=== PATIENT | male | born 1960 | race Caucasian/White ===

== ENCOUNTER 2016-05-14 01:45 | Inpatient (IN) | payer OTHER ==
[2016-05-14] VITALS (8 sets, daily range): BP systolic 117–137; BP diastolic 77–96; PULSE 91–115; RESP 20; TEMP 98.3
[~2016-05-14] VITALS: Ht 170.2 cm; Wt 95.0 kg
[2016-05-14] MEDS ORDERED: ALBUTEROL 0.5% (NEB) 2.5 MG/0.5 ML AMP NEB STA (03:19)
[2016-05-14] MEDS ORDERED: IPRATROPIUM (NEB) 0.5 MG/2.5 ML AMP NEB STA (03:19)
--- NOTE | 2016-05-14 03:54 | RADRPT ---
PROCEDURE: Chest. CLINICAL INDICATION: Shortness of breath. TECHNIQUE: Single frontal view of the chest was obtained. COMPARISON: 05/11/2013. FINDINGS: The cardiac silhouette is enlarged. The aortic arch is calcified. There is pulmonary venous conges tion. There is no pleural effusion. There is no pneumothorax. IMPRESSION: Moderate cardiomegaly and pulmonary venous congestion. Aortic atherosclerosis. .Juan Ramon Caraballo MD, MD Date Time Electronically viewed and signed by .Juan Ramon Caraballo MD, on 05/14/2016 03:54 .T/
[2016-05-14 04:19] LABS: ALBUMIN 3.6 g/dl (3.3-4.9)
[2016-05-14 04:20] LABS: POTASSIUM 4.3 mmol/L (3.5-5.1)
[2016-05-14 04:22] LABS: ALBUMIN/GLOBULIN RATIO 1.44; BILIRUBIN,INDIRECT 0.6 mg/dl (0-1.1); BILIRUBIN,TOTAL 0.6 mg/dl (0.2-1.3); CALCIUM 8.9 mg/dl (8.4-10.2); CREATININE 0.98 mg/dl (0.61-1.24); TOTAL PROTEIN 6.1 g/dl (6.1-8.1)
[2016-05-14] MEDS ORDERED: FUROSEMIDE 40 MG INJ IV ONE ×2 (04:30→15:38)
[2016-05-14 04:31] LABS: PROTIME 13.2 Sec (12.2-14.2)
[2016-05-14 04:34] LABS: TROPONIN-I 0.063 ng/ml (0.00-0.12)
[2016-05-14 04:35] LABS: HEMATOCRIT 45.2 % (42.0-52.0); MEAN CORPUSCULAR HEMOGLOBIN 29.3 pg (29.0-33.0); MEAN CORPUSCULAR HGB CONC 33.2 g/dl (32.0-37.0); MEAN CORPUSCULAR VOLUME 88.3 fl (82.0-101.0); MEAN PLATELET VOLUME 10.8 fl (7.4-10.4); PARTIAL THROMBOPLASTIN TIME 27.6 Sec (25.0-35.0); PLATELET COUNT 216 10^3/UL (140-440); RED BLOOD COUNT 5.12 10^6/ul (4.70-6.10); RED CELL DISTRIBUTION WIDTH 15.5 % (11.5-14.5); WHITE BLOOD COUNT 9.1 10^3/ul (4.8-10.8)
[2016-05-14 04:36] LABS: BASOPHILS % 0.4 % (0.0-2.0); EOSINOPHILS # 0.1 10^3/ul (0.0-0.5); EOSINOPHILS % 1.3 % (0.0-7.0); LYMPHOCYTES # 2.8 10^3/ul (0.8-2.9); MONOCYTE # 0.9 10^3/ul (0.3-0.9); MONOCYTES % 9.9 % (0.0-11.0); NEUTROPHIL # 5.2 10^3/ul (1.6-7.5)
[2016-05-14] MEDS ORDERED: BENA10TA48 PO (06:48)
[2016-05-14] MEDS ORDERED: morphine 2 MG INJ IV PRN (11:30)
[2016-05-14] MEDS ORDERED: MAGNESIUM HYDROXIDE 30ML CUP PO PRN (11:30)
[2016-05-14] MEDS ORDERED: ONDANSETRON 4 MG INJ IV PRN (11:30)
[2016-05-14] MEDS ORDERED: NACL 0.9% 3 ML SYG IV SCH (11:30)
[2016-05-14] MEDS ORDERED: NITROGLYCERIN (SL) 0.4 MG TAB SL PRN (11:30)
[2016-05-14] MEDS ORDERED: BISACODYL 10 MG SUPP PR PRN (11:30)
[2016-05-14] MEDS ORDERED: DOCUSATE SODIUM 100 MG CAP PO PRN (11:30)
[2016-05-14] MEDS ORDERED: ACETAMINOPHEN 325 MG TAB PO PRN (11:30)
[2016-05-14] MEDS ORDERED: HYDROCODONE/APAP (5/325) TAB PO PRN ×2 (11:30)
[2016-05-14] MEDS: ENOXAPARIN 40 MG/0.4 ML SYG SC SCH (12:07)
[2016-05-14] MEDS: METOPROLOL 25 MG TAB PO SCH ×2 (12:10→20:53)
[2016-05-14 13:15] LABS: CHOL/HDL RATIO 3.4 RATIO
[2016-05-14 13:27] LABS: TROPONIN-I 0.068 ng/ml (0.00-0.12)
[2016-05-14 13:31] LABS: CK-MB 2.3 ng/ml (0.0-2.4)
[2016-05-14 13:46] LABS: THYROID STIMULATING HORMONE 0.73 MIU/L (0.465-4.680)
--- NOTE | 2016-05-14 14:41 | RADRPT ---
Echocardiogram Report Patient Name: MERCEDES CURIEL Gender: Male Date: 1960 Study Date: 14-May-2016 Registered Massage Therapist: [facility] Location: 5554 Ref. Physician: GREG ANTONY Quality: Adequate Procedures: Transthoracic echocardiogram with complete 2D, M-Mode, and doppler examination. Indications: Evaluate Left Ventricular function. 2D/M Mode Doppler Measurement Value Normal Ranges Measurement Value Normal Ranges LVIDd 2D 7.3 3.5 - 5.6 cm AV Peak Oneil 1.1 m/sec LVIDs 2D 6.8 2.1 - 4.1 cm AV Peak PG 5.2 mmHg LVPWd 2D 1.0 0.6 - 1.1 cm AI Peak PG 8.0 mmHg IVSd 2D 1.0 0.6 - 1.1 cm AI Peak Oneil 1.4 m/sec AoR Diam 2D 2.8 2.0 - 3.7 cm AI PHT 495.3 msec EDV 2D 283.7 cm3 LVOT Peak Oneil 0.7 m/sec ESV 2D 321.3 cm3 LVOT Peak PG 2.0 mmHg EF 2D 15.0 50.0 - 65.0 % MR Mean PG 75.3 mmHg LA Dimen 2D 4.8 2.3 - 4.0 cm MR Mean Oneil 4.1 m/sec IVC Diam 2.7 1.2 - 2.0 MR Peak PG 119.8 mmHg MR Peak Oneil 5.5 m/sec MR VTI 153.7 cm TR Peak Oneil 3.6 m/sec TR Peak PG 52.4 mmHg Findings Left Ventricle: Lower limits of normal systolic function. Left ventricular wall thickness upper limits of normal. Mild enlargement of left ventricle cavity. Ejection fraction is visually estimated at 50 %. Abnormal Diastolic Function. These segments of the LV are hypokinetic inferolateral mid segment and inferolateral base. Right Ventricle: Normal right ventricular size. Normal right ventricular systolic function. Left Atrium: There is moderate enlargement of left atrium. Right Atrium: There is mild enlargement of right atrium. Mitral Valve: Mitral valve leaflets appear mildly thickened. Mild mitral annular calcification. Moderate to severe mitral valve regurgitation. Aortic Valve: No hemodynamically significant aortic stenosis by doppler. Aortic cusps appear mildly calcified. Trace aortic valve regurgitation. Tricuspid Valve: Normal appearance of the tricuspid valve. Estimated peak PA systolic pressure 65 mmHg. There is mild to moderate tricuspid regurgitation. Pulmonic Valve: Pulmonic valve not well visualized. There is trace pulmonic regurgitation. Pericardium: Normal pericardium with no significant pericardial effusion. Aorta: Normal aortic root. IVC: Dilated inferior vena cava with poor inspiratory collapse consistent with elevated right atrial pressures. Conclusions Lower limits of normal systolic function. Left ventricular wall thickness upper limits of normal. Mild enlargement of left ventricle cavity. Ejection fraction is visually estimated at 50 %. Abnormal Diastolic Function. These segments of the LV are hypokinetic infero-lateral mid segment. and infero-lateral base. Normal right ventricular size. Normal right ventricular systolic function. There is moderate enlargement of left atrium. There is mild enlargement of right atrium. Moderate to severe mitral valve regurgitation. Estimated peak PA systolic pressure 65 mmHg. There is mild to moderate tricuspid regurgitation. No hemodynamically significant aortic stenosis by doppler. Trace aortic valve regurgitation. Normal pericardium with no significant pericardial effusion. Electronically Signed By: Chuck Szymanski 14-May-2016 14:40:54 -0800 Patient Name: MERCEDES CURIEL Study Date: 14-May-[id number]
--- NOTE | 2016-05-14 15:42 | CONS ---
Date/Time of Note Date/Time of Note DATE: 05/14/16 TIME: 15:38 Assessment/Plan Assessment/Plan Additional Assessment/Plan Acute decompensated systolic and diastolic congestive heart failure Cardiomyopathy with ejection fraction 50% Moderate to severe mitral valve regurgitation Mild to moderate tricuspid valve regurgitation Pulmonary hypertension Hypertension Dyslipidemia -Patient with acute decompensated congestive heart failure with significant mitral valve regurgitation. Would start ERIKA inhibitor, continue beta-ezio, start IV diuretics, aspirin and statin therapy, maintain potassium above 4.0 and magnesium above 2.0. Fluid restrictions with 2 g sodium daily diet. Consultation Date/Type/Reason Admit Date/Time May 14, 2016 at 04:08 Type of Consultation: cv Reason for Consultation Shortness of breath Hx of Present Illness This is a 56-year-old male with past medical history of hypertension and dyslipidemia who presents with progressive worsening shortness of breath over the past 3 weeks. Patient said he has been having a dry cough and symptoms " the flu". He did go to an urgent care and was given antibiotics as well as inhalers. He did have some improvement in symptoms and finished antibiotics yesterday. Last night, patient with severe shortness of breath with lying down flat and improved with sitting up. Denies any chest pain, dizziness or lightheadedness. He denies any fevers or chills. Denies any lower extremity edema. 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 Exam/Review of Systems Vital Signs Vitals Vital Signs Date Time Temp Pulse Resp B/P Pulse Ox O2 Delivery O2 Flow Rate FiO2 05/14/16 12:12 96 05/14/16 12:07 98.8 20 122/96 97 05/14/16 09:44 Nasal Cannula 2.0 05/14/16 04:19 21 Exam No apparent distress, able to speak in complete sentences Constitutional: alert, oriented Head: normocephalic Neck: supple Respiratory: other (Coarse breath sounds bilaterally, no wheezing) Cardiovascular: other (S1-S2 heard), regular rate and rhythm, systolic murmur Gastrointestinal: bowel sounds, non-tender, other (No guarding), soft Extremities: edema (Trace) Results Result Diagram: 2/20/17 0334 05/14/16 0334 Results 24 hrs Laboratory Tests Test 05/14/16 03:34 05/14/16 12:30 Activated Partial Thromboplast Time 27.6 Alanine Aminotransferase (ALT/SGPT) 48 Albumin 3.6 Albumin/Globulin Ratio 1.44 Alkaline Phosphatase 57 Anion Gap 15 Aspartate Amino Transf (AST/SGOT) 38 B-Type Natriuretic Peptide 6720 H Basophils # 0.0 Basophils % 0.4 Blood Urea Nitrogen 17 Calcium Level 8.9 Carbon Dioxide Level 23 Chloride Level 107 Creatinine 0.98 Direct Bilirubin 0.00 Eosinophils # 0.1 Eosinophils % 1.3 Globulin 2.50 Glucose Level 129 Hematocrit 45.2 Hemoglobin 15.0 INR International Normalized Ratio 1.00 Indirect Bilirubin 0.6 Lymphocytes # 2.8 Lymphocytes % 31.0 Mean Corpuscular Hemoglobin 29.3 Mean Corpuscular Hemoglobin Concent 33.2 Mean Corpuscular Volume 88.3 Mean Platelet Volume 10.8 H Monocytes # 0.9 Monocytes % 9.9 Neutrophils # 5.2 Neutrophils % 57.0 Nucleated Red Blood Cells # 0.0 Nucleated Red Blood Cells % 0.0 Platelet Count 216 Potassium Level 4.3 Prothrombin Time 13.2 Prothrombin Time Ratio 1.0 Red Blood Count 5.12 Red Cell Distribution Width 15.5 H Sodium Level 141 Total Bilirubin 0.6 Total Protein 6.1 Troponin I 0.063 0.068 White Blood Count 9.1 Cholesterol Level 171 Cholesterol/HDL Ratio 3.4 Creatine Kinase 111 Creatine Kinase Index 2.1 Creatinine Kinase MB (Mass) 2.30 Free Thyroxine 1.33 HDL Cholesterol 49 LDL Cholesterol, Calculated 99 Thyroid Stimulating Hormone (TSH) 0.730 Triglycerides Level 115 Medications Medications Current Medications Ondansetron HCl (Zofran Inj) 4 mg Q6H PRN IV NAUSEA AND/OR VOMITING; Start at 11:30 Aspirin (Aspirin) 81 mg DAILY PO ; Start 05/15/16 at 09:00 Nitroglycerin (Nitroglycerin (Sl Tab) 0.4 Mg) 1 tab Q5M PRN SL CHEST PAIN; Start 05/14/16 at 11:30 Acetaminophen (Tylenol Tab) 650 mg Q6H PRN PO PAIN LEVEL 1-3 OR FEVER; Start at 11:30 Acetaminophen/ Hydrocodone Bitart ([place] (5/325)) 1 tab Q6H PRN PO PAIN LEVEL 4 -6; Start 05/14/16 at 11:30 Acetaminophen/ Hydrocodone Bitart ([place] (5/325)) 2 tab Q6H PRN PO PAIN LEVEL 7 -10; Start 05/14/16 at 11:30 Morphine Sulfate (morphine) 2 mg Q4H PRN IV PAIN LEVEL 7-10; Start 05/14/16 at 11:30 Docusate Sodium (Colace) 100 mg Q12H PRN PO CONSTIPATION; Start 05/14/16 at 11: 30 Magnesium Hydroxide (Milk Of Mag) 30 ml DAILY PRN PO CONSTIPATION; Start at 11:30 Bisacodyl (Dulcolax Supp) 10 mg DAILY PRN NM CONSTIPATION; Start 05/14/16 at 11 :30 Famotidine (Pepcid) 20 mg Q12 PO ; Start 05/14/16 at 21:00 Enoxaparin Sodium (Lovenox) 40 mg DAILY SC Last administered on 05/14/16 12:07 ; Admin Dose 40 MG; Start 05/14/16 at 12:00 Metoprolol Tartrate (Lopressor) 25 mg BID PO Last administered on 05/14/16 12: 10; Admin Dose 25 MG; Start 05/14/16 at 11:30 Influenza Virus Vaccine (Fluzone) 0.5 ml ONCE ONCE IM* ; Start 05/15/16 at 12:30 ; Stop 05/15/16 at 12:31 Lisinopril (Zestril) 5 mg BID PO ; Start 05/14/16 at 21:00; Status UNV Procedures Procedures ECG demonstrates sinus tachycardia at 101 bpm, PVCs, left ventricular hypertrophy, inferior Q waves Chuck Szymanski DO May 14, 2016 15:42
[2016-05-14] MEDS ORDERED: MAGNESIUM SULFATE 2 GM/50 ML 50 ML IVPB ONE (16:00)
--- NOTE | 2016-05-14 17:45 | HP ---
DATE OF ADMISSION: 05/14/2016 PRIMARY CARE PHYSICIAN: Dr. Joyner. CHIEF COMPLAINT ON ADMISSION: Orthopnea and dyspnea on exertion. HISTORY OF PRESENT ILLNESS: This is a 56-year-old male with a previous history of hypertension and hyperlipidemia who apparently was also recently treated for flu-like symptoms [facility] complaint of mainly orthopnea. Patient reports that for the past 3 weeks n ow he has been having episodes of dyspnea on exertion. 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 The patient was seen in the urgent care and was diagnosed with cold and flu an d was given multiple medications. He has been doing better. Then, yesterday he went to the [place] w ith his family. He did walk for a when. He got back home last night he had severe orthopnea, coul d not breathe. Therefore, he was brought to the emergency department. The patient does report dysp kyle on exertion and decreased exercise tolerance over the past 10 days at least. He has noticed garcia t he gets short of breath and dizzy when he walks for a while. He denies any chest pain, nausea or vomiting. He reports compliance with his blood pressure medication benazepril. He reports that sharon roximately 3 years ago he was seen here in the hospital for chest pain, but left against medical adv ice and has not had cardiology followup as an outpatient. In the emergency department, he was given a dose of Lasix. His BNP was elevated. He was admitted for congestive heart failure exacerbation b asically based on his chest x-ray and a cardiology evaluation. ALLERGIES: NO KNOWN ALLERGIES. PAST MEDICAL HISTORY: 1. Hyperlipidemia. 2. Hypertension. PAST SURGICAL HISTORY: None. 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 He lives with family. He quit smoking 2 years ago. He did smoke for 15 to 20 years, half a pack to a pack a day. He only drinks vodka occasionally a nd socially. REVIEW OF SYSTEMS: As per HPI. The patient denies any neurological or genitourinary complaints and no gastrointestinal complaints. OUTPATIENT MEDICATIONS: Benazepril 10 mg p.o. daily. PHYSICAL EXAMINATION: VITAL SIGNS: Temperature is 98.8, heart rate of 96, respiratory rate of 20, blood pressure 122/96. Patient is saturating 97% on room air currently. GENERAL: He is alert and oriented x4, very pleasant gentleman. HEENT: Pupils are equally round and reactive to light. Extraocular muscles are intact. Anicteric sclerae. NECK: No JVD, no thyromegaly noted. HEART: Regular rate and rhythm. LUNGS: Does have a loud MR murmur more audible in the left axillary area. ABDOMEN: Soft, nontender, nondistended. Bowel sounds are present. EXTREMITIES: No edema, clubbing or cyanosis noted. NEUROLOGIC: Grossly intact. LABORATORY DATA: White blood cell count is 9.1, hemoglobin 15.2, hematocrit 45.2, platelet count of 216. Chemistry with a sodium of 141, potassium 4.3, chloride 107, bicarbonate 23, BUN 17, creatini ne 0.98, glucose of 129. Total bilirubin 0.6, AST 38, ALT 48, alkaline phosphatase 57. Troponin ne gative x2. BNP 6720. Albumin 3.6, total protein 6.1, cholesterol 171, LDL 99, HDL 49. TSH 0.730, free T4 1.33. INR is 1.0, PT 13.2, PTT 27.6. RADIOLOGICAL DATA: Chest x-ray does show moderate cardiomegaly and pulmonary venous congestion, aor tic atherosclerosis. EKG on admission did show sinus tachycardia with some PVCs and also LVH. A 2-D echocardiogram done today is showing ejection fraction of 50%, abnormal diastolic function, LV inferolateral and mid segments are hypokinetic and also hypokinetic inferolateral base, moderate en largement of left atrium, mild enlargement of right atrium, moderate to severe mitral valve regurgit ation, mild to moderate tricuspid regurgitation. ASSESSMENT AND PLAN: This is a 56-year-old male with: 1. Orthopnea and dyspnea on exertion secondary to congestive heart failure exacerbation with some d iastolic and systolic dysfunction. Patient also found to have severe valvular disease, mitral valve regurgitation. Dr. Szymanski has seen the patient. At this point, we will continue medical managemen t including diuretic therapy. Also, will be continued on ERIKA inhibitors and he has been started on some beta blockers. We will continue to monitor his respiratory status. He has been ruled out for acute coronary syndrome. We will discuss initiation of statin, but his fasting lipid panels are sta ble. 2. Prophylaxis. Pepcid for gastrointestinal prophylaxis, Lovenox for deep vein thrombosis prophyla xis. DISPOSITION: Continue diuresis and medical management for now. We will reevaluate in the morning an d if his respiratory status is much improved we will plan for discharge planning. Dictated By: HELDER CHOWDHURY/JOAQUIM Conf#: [id number] DID#: [id number]
[2016-05-14] MEDS ORDERED: FUROSEMIDE 40 MG INJ IV SCH (18:00)
[2016-05-14] MEDS: ATORVASTATIN 20 MG TAB PO SCH (20:52)
[2016-05-14] MEDS: FAMOTIDINE 20 MG TAB PO SCH (20:53)
[2016-05-14] MEDS: LISINOPRIL 5 MG TAB PO SCH (20:53)
[2016-05-15] VITALS (13 sets, daily range): BP systolic 109–123; BP diastolic 62–89; PULSE 83–119; RESP 17–21; Ht 170.2 cm; Wt 95.0 kg
[2016-05-15] MEDS: FUROSEMIDE 40 MG INJ IV SCH ×2 (05:34→17:37)
[2016-05-15 07:54] LABS: ALBUMIN 3.8 g/dl (3.3-4.9)
[2016-05-15 07:55] LABS: POTASSIUM 4.4 mmol/L (3.5-5.1)
[2016-05-15 07:57] LABS: BILIRUBIN,INDIRECT 1.3 mg/dl (0-1.1); BILIRUBIN,TOTAL 1.3 mg/dl (0.2-1.3); CREATININE 1.02 mg/dl (0.61-1.24)
[2016-05-15 07:58] LABS: ALBUMIN/GLOBULIN RATIO 1.35; TOTAL PROTEIN 6.6 g/dl (6.1-8.1)
[2016-05-15 08:01] LABS: BASOPHILS % 0.3 % (0.0-2.0); EOSINOPHILS # 0.1 10^3/ul (0.0-0.5); EOSINOPHILS % 1.1 % (0.0-7.0); HEMATOCRIT 47.2 % (42.0-52.0); LYMPHOCYTES # 2.9 10^3/ul (0.8-2.9); LYMPHOCYTES % 27.6 % (15.0-51.0); MEAN CORPUSCULAR HEMOGLOBIN 29.9 pg (29.0-33.0); MEAN CORPUSCULAR HGB CONC 33.9 g/dl (32.0-37.0); MEAN CORPUSCULAR VOLUME 88.1 fl (82.0-101.0); MEAN PLATELET VOLUME 9.6 fl (7.4-10.4); MONOCYTES % 9.4 % (0.0-11.0); NEUTROPHIL # 6.6 10^3/ul (1.6-7.5); NEUTROPHILS % 61.6 % (39.0-77.0); PLATELET COUNT 191 10^3/UL (140-440); RED BLOOD COUNT 5.35 10^6/ul (4.70-6.10); RED CELL DISTRIBUTION WIDTH 16.6 % (11.5-14.5); UNCORRECTED WBC 10.7 10^3/ul (4.8-10.8); WHITE BLOOD COUNT 10.7 10^3/ul (4.8-10.8)
[2016-05-15 08:04] LABS: CONDITION 1; LH ANALYZER COMMENTS 1
[2016-05-15] MEDS: FAMOTIDINE 20 MG TAB PO SCH ×2 (08:33→21:03)
[2016-05-15] MEDS: METOPROLOL 25 MG TAB PO SCH ×2 (08:37→21:04)
[2016-05-15] MEDS: ENOXAPARIN 40 MG/0.4 ML SYG SC SCH (08:39)
[2016-05-15] MEDS: ASPIRIN 81 MG TAB PO SCH (08:48)
[2016-05-15] MEDS: LISINOPRIL 5 MG TAB PO SCH ×2 (08:48→21:04)
--- NOTE | 2016-05-15 10:36 | PN ---
Date/Time of Note Date/Time of Note DATE: 05/15/16 TIME: 10:26 Assessment/Plan VTE Prophylaxis VTE Prophylaxis Intervention: SCD's Lines/Catheters IV Catheter Type (from Nrs): Saline Lock Assessment/Plan Assessment/Plan 56-year-old male with: 1. Congestive heart failure exacerbation, acute with diastolic and systolic dysfunction. Likely CAD per echo findings. Moderate to severe mitral valve regurgitation on echo also with orthopnea mainly. Appreciate recommendations from Dr. Szymanski, continue diuretics, Walter inhibitors and Bblock. Continue statins D/c plan when Ok with cardiology with oupatient angio and further plan for moderate to severe MR if needed Prophylaxis. Pepcid for gastrointestinal prophylaxis, Lovenox for deep vein thrombosis prophylaxis. DISPOSITION: F/u cardiology recs today Subjective 24 Hr Interval Summary Free Text/Dictation Patient doing better with less orthopnea but still had an episode overnight and on O2 overnight No LE edema and remains in SR Exam/Review of Systems Vital Signs Vitals Vital Signs Date Time Temp Pulse Resp B/P Pulse Ox O2 Delivery O2 Flow Rate FiO2 05/15/16 09:44 90 05/15/16 09:01 97.9 17 123/89 99 05/14/16 09:44 Nasal Cannula 2.0 05/14/16 04:19 21 Intake and Output 05/14/16 05/14/16 05/15/16 15:00 23:00 07:00 Intake Total 300 ml 400 ml Balance 300 ml 400 ml Exam Constitutional: alert, oriented, other (orthopnea ), well developed Respiratory: clear to auscultation, normal air movement Cardiovascular: murmurs/extra sounds (MR ), nl pulses, regular rate and rhythm Gastrointestinal: non-tender, soft Musculoskeletal: nl extremities to inspection, nl gait and stance Extremities: normal pulses, other (no edema, clubbing or cyanosis ) Neurological: MANAGER IT SECURITY II-XII intact, nl mental status, nl speech, nl strength Results Result Diagram: 05/15/1604 05/15/16 0704 Results 24 hrs Laboratory Tests Test 05/14/16 12:30 05/15/16 07:04 Cholesterol Level 171 Cholesterol/HDL Ratio 3.4 Creatine Kinase 111 Creatine Kinase Index 2.1 Creatinine Kinase MB (Mass) 2.30 Free Thyroxine 1.33 HDL Cholesterol 49 LDL Cholesterol, Calculated 99 Thyroid Stimulating Hormone (TSH) 0.730 Triglycerides Level 115 Troponin I 0.068 Alanine Aminotransferase (ALT/SGPT) 43 Albumin 3.8 Albumin/Globulin Ratio 1.35 Alkaline Phosphatase 60 Anion Gap 15 Aspartate Amino Transf (AST/SGOT) 28 Basophils # 0.0 Basophils % 0.3 Blood Morphology Comment Blood Urea Nitrogen 23 H Calcium Level 9.0 Carbon Dioxide Level 26 Chloride Level 102 Creatinine 1.02 Direct Bilirubin 0.00 Eosinophils # 0.1 Eosinophils % 1.1 Globulin 2.80 Glucose Level 156 Hematocrit 47.2 Hemoglobin 16.0 Indirect Bilirubin 1.3 H Lymphocytes # 2.9 Lymphocytes % 27.6 Magnesium Level 2.0 Mean Corpuscular Hemoglobin 29.9 Mean Corpuscular Hemoglobin Concent 33.9 Mean Corpuscular Volume 88.1 Mean Platelet Volume 9.6 Monocytes # 1.0 H Monocytes % 9.4 Neutrophils # 6.6 Neutrophils % 61.6 Nucleated Red Blood Cells # 0.0 Nucleated Red Blood Cells % 0.0 Platelet Count 191 Potassium Level 4.4 Red Blood Count 5.35 Red Cell Distribution Width 16.6 H Sodium Level 139 Total Bilirubin 1.3 Total Protein 6.6 White Blood Count 10.7 Medications Medications Current Medications Ondansetron HCl (Zofran Inj) 4 mg Q6H PRN IV NAUSEA AND/OR VOMITING; Start at 11:30 Aspirin (Aspirin) 81 mg DAILY PO Last administered on 05/15/16t 08:48; Admin Dose 81 MG; Start 05/15/16 at 09:00 Nitroglycerin (Nitroglycerin (Sl Tab) 0.4 Mg) 1 tab Q5M PRN SL CHEST PAIN; Start 05/14/16 at 11:30 Acetaminophen (Tylenol Tab) 650 mg Q6H PRN PO PAIN LEVEL 1-3 OR FEVER; Start at 11:30 Acetaminophen/ Hydrocodone Bitart ([place] (5/325)) 1 tab Q6H PRN PO PAIN LEVEL 4 -6; Start 05/14/16 at 11:30 Acetaminophen/ Hydrocodone Bitart ([place] (5/325)) 2 tab Q6H PRN PO PAIN LEVEL 7 -10; Start 05/14/16 at 11:30 Morphine Sulfate (morphine) 2 mg Q4H PRN IV PAIN LEVEL 7-10; Start 05/14/16 at 11:30 Docusate Sodium (Colace) 100 mg Q12H PRN PO CONSTIPATION; Start 05/14/16 at 11: 30 Magnesium Hydroxide (Milk Of Mag) 30 ml DAILY PRN PO CONSTIPATION; Start at 11:30 Bisacodyl (Dulcolax Supp) 10 mg DAILY PRN NM CONSTIPATION; Start 05/14/16 at 11 :30 Famotidine (Pepcid) 20 mg Q12 PO Last administered on 05/15/16 08:33; Admin Dose 20 MG; Start 05/14/16 at 21:00 Enoxaparin Sodium (Lovenox) 40 mg DAILY SC Last administered on 05/15/16 08:39 ; Admin Dose 40 MG; Start 05/14/16 at 12:00 Metoprolol Tartrate (Lopressor) 25 mg BID PO Last administered on 05/15/16 08: 37; Admin Dose 25 MG; Start 05/14/16 at 11:30 Influenza Virus Vaccine (Fluzone) 0.5 ml ONCE ONCE IM* ; Start 05/15/16 at 12:30 ; Stop 05/15/16 at 12:31 Lisinopril (Zestril) 5 mg BID PO Last administered on 05/15/16 08:48; Admin Dose 5 MG; Start 05/14/16 at 21:00 Atorvastatin Calcium (Lipitor) 20 mg HS PO Last administered on 05/14/16 20:52 ; Admin Dose 20 MG; Start 05/14/16 at 21:00 Procedures Procedures Echocardiogram Report Patient Name: MERCEDES CURIEL Gender: Male Date: 1960 Study Date: 14-May-2016 Location Man: [facility] Location: 5554 Ref. Physician: GREG ANTONY Quality: Adequate Procedures: Transthoracic echocardiogram with complete 2D, M-Mode, and doppler examination. Indications: Evaluate Left Ventricular function. 2D/M Mode Doppler Measurement Value Normal Ranges Measurement Value Normal Ranges LVIDd 2D 7.3 3.5 - 5.6 cm AV Peak Oneil 1.1 m/sec LVIDs 2D 6.8 2.1 - 4.1 cm AV Peak PG 5.2 mmHg LVPWd 2D 1.0 0.6 - 1.1 cm AI Peak PG 8.0 mmHg IVSd 2D 1.0 0.6 - 1.1 cm AI Peak Oneil 1.4 m/sec AoR Diam 2D 2.8 2.0 - 3.7 cm AI PHT 495.3 msec EDV 2D 283.7 cm3 LVOT Peak Oneil 0.7 m/sec ESV 2D 321.3 cm3 LVOT Peak PG 2.0 mmHg EF 2D 15.0 50.0 - 65.0 % MR Mean PG 75.3 mmHg LA Dimen 2D 4.8 2.3 - 4.0 cm MR Mean Oneil 4.1 m/sec IVC Diam 2.7 1.2 - 2.0 MR Peak PG 119.8 mmHg MR Peak Oneil 5.5 m/sec MR VTI 153.7 cm TR Peak Oneil 3.6 m/sec TR Peak PG 52.4 mmHg Findings Left Ventricle: Lower limits of normal systolic function. Left ventricular wall thickness upper limits of normal. Mild enlargement of left ventricle cavity. Ejection fraction is visually estimated at 50 %. Abnormal Diastolic Function. These segments of the LV are hypokinetic inferolateral mid segment and inferolateral base. Right Ventricle: Normal right ventricular size. Normal right ventricular systolic function. Left Atrium: There is moderate enlargement of left atrium. Right Atrium: There is mild enlargement of right atrium. Mitral Valve: Mitral valve leaflets appear mildly thickened. Mild mitral annular calcification. Moderate to severe mitral valve regurgitation. Aortic Valve: No hemodynamically significant aortic stenosis by doppler. Aortic cusps appear mildly calcified. Trace aortic valve regurgitation. Tricuspid Valve: Normal appearance of the tricuspid valve. Estimated peak PA systolic pressure 65 mmHg. There is mild to moderate tricuspid regurgitation. Pulmonic Valve: Pulmonic valve not well visualized. There is trace pulmonic regurgitation. Pericardium: Normal pericardium with no significant pericardial effusion. Aorta: Normal aortic root. IVC: Dilated inferior vena cava with poor inspiratory collapse consistent with elevated right atrial pressures. Conclusions Lower limits of normal systolic function. Left ventricular wall thickness upper limits of normal. Mild enlargement of left ventricle cavity. Ejection fraction is visually estimated at 50 %. Abnormal Diastolic Function. These segments of the LV are hypokinetic infero-lateral mid segment. and infero-lateral base. Normal right ventricular size. Normal right ventricular systolic function. There is moderate enlargement of left atrium. There is mild enlargement of right atrium. Moderate to severe mitral valve regurgitation. Estimated peak PA systolic pressure 65 mmHg. There is mild to moderate tricuspid regurgitation. No hemodynamically significant aortic stenosis by doppler. Trace aortic valve regurgitation. Normal pericardium with no significant pericardial effusion. HELDER ANTONY May 15, 2016 10:36
[2016-05-15] MEDS ORDERED: MAGNESIUM SULFATE 2 GM/50 ML 50 ML IVPB ONE (11:30)
[2016-05-15] MEDS ORDERED: INFLUENZA VIRUS VACCINE 0.5 ML SYG IM* ONE (12:30)
--- NOTE | 2016-05-15 19:20 | CONS ---
Date/Time of Note Date/Time of Note DATE: 05/15/16 TIME: 19:18 Assessment/Plan Assessment/Plan Additional Assessment/Plan Acute decompensated systolic and diastolic congestive heart failure Cardiomyopathy with ejection fraction 50% Moderate to severe mitral valve regurgitation Mild to moderate tricuspid valve regurgitation Pulmonary hypertension Hypertension Dyslipidemia NSVT -Patient with recurrent episodes of nonsustained ventricular tachycardia on telemetry. Magnesium supplementation has been ordered. I am concerned that ischemia could possibly be the etiology versus congestive heart failure decompensation. I did discuss cardiac catheterization with the patient. Patient tells me he still unable to lie flat. I asked the nurse to see how patient does this evening and will reassess tomorrow. Continue beta-ezio, ERIKA inhibitor, adjust diuretics to p.o. Consultation Date/Type/Reason Admit Date/Time May 14, 2016 at 04:08 Initial Consult Date Type of Consultation: cv 24 HR Interval Summary Free Text/Dictation Still with shortness of breath overnight and lying flat but better. Denies chest pain, dizziness Exam/Review of Systems Vital Signs Vitals Vital Signs Date Time Temp Pulse Resp B/P Pulse Ox O2 Delivery O2 Flow Rate FiO2 05/15/16 17:39 87 05/15/16 16:10 97.4 17 113/62 97 05/14/16 09:44 Nasal Cannula 2.0 05/14/16 04:19 21 Intake and Output 05/14/16 05/14/16 05/15/16 15:00 23:00 07:00 Intake Total 300 ml 400 ml Balance 300 ml 400 ml Exam No apparent distress Constitutional: alert, oriented Head: normocephalic Neck: supple Respiratory: other (Coarse breath sounds bilaterally, no wheezing) Cardiovascular: other (S1-S2 heard), regular rate and rhythm, systolic murmur Gastrointestinal: bowel sounds, non-tender, other (No guarding), soft Extremities: edema (Trace) Results Result Diagram: 05/15/16 0704 05/15/16 0704 Results 24 hrs Laboratory Tests Test 05/15/16 07:04 Alanine Aminotransferase (ALT/SGPT) 43 Albumin 3.8 Albumin/Globulin Ratio 1.35 Alkaline Phosphatase 60 Anion Gap 15 Aspartate Amino Transf (AST/SGOT) 28 Basophils # 0.0 Basophils % 0.3 Blood Morphology Comment Blood Urea Nitrogen 23 H Calcium Level 9.0 Carbon Dioxide Level 26 Chloride Level 102 Creatinine 1.02 Direct Bilirubin 0.00 Eosinophils # 0.1 Eosinophils % 1.1 Globulin 2.80 Glucose Level 156 Hematocrit 47.2 Hemoglobin 16.0 Indirect Bilirubin 1.3 H Lymphocytes # 2.9 Lymphocytes % 27.6 Magnesium Level 2.0 Mean Corpuscular Hemoglobin 29.9 Mean Corpuscular Hemoglobin Concent 33.9 Mean Corpuscular Volume 88.1 Mean Platelet Volume 9.6 Monocytes # 1.0 H Monocytes % 9.4 Neutrophils # 6.6 Neutrophils % 61.6 Nucleated Red Blood Cells # 0.0 Nucleated Red Blood Cells % 0.0 Platelet Count 191 Potassium Level 4.4 Red Blood Count 5.35 Red Cell Distribution Width 16.6 H Sodium Level 139 Total Bilirubin 1.3 Total Protein 6.6 White Blood Count 10.7 Medications Medications Current Medications Ondansetron HCl (Zofran Inj) 4 mg Q6H PRN IV NAUSEA AND/OR VOMITING; Start at 11:30 Aspirin (Aspirin) 81 mg DAILY PO Last administered on 05/15/16t 08:48; Admin Dose 81 MG; Start 05/15/16 at 09:00 Nitroglycerin (Nitroglycerin (Sl Tab) 0.4 Mg) 1 tab Q5M PRN SL CHEST PAIN; Start 05/14/16 at 11:30 Acetaminophen (Tylenol Tab) 650 mg Q6H PRN PO PAIN LEVEL 1-3 OR FEVER; Start at 11:30 Acetaminophen/ Hydrocodone Bitart ([place] (5/325)) 1 tab Q6H PRN PO PAIN LEVEL 4 -6; Start 05/14/16 at 11:30 Acetaminophen/ Hydrocodone Bitart ([place] (5/325)) 2 tab Q6H PRN PO PAIN LEVEL 7 -10; Start 05/14/16 at 11:30 Morphine Sulfate (morphine) 2 mg Q4H PRN IV PAIN LEVEL 7-10; Start 05/14/16 at 11:30 Docusate Sodium (Colace) 100 mg Q12H PRN PO CONSTIPATION; Start 05/14/16 at 11: 30 Magnesium Hydroxide (Milk Of Mag) 30 ml DAILY PRN PO CONSTIPATION; Start at 11:30 Bisacodyl (Dulcolax Supp) 10 mg DAILY PRN [place] CONSTIPATION; Start 05/14/16 at 11 :30 Famotidine (Pepcid) 20 mg Q12 PO Last administered on 05/15/16 08:33; Admin Dose 20 MG; Start 05/14/16 at 21:00 Enoxaparin Sodium (Lovenox) 40 mg DAILY SC Last administered on 05/15/16 08:39 ; Admin Dose 40 MG; Start 05/14/16 at 12:00 Metoprolol Tartrate (Lopressor) 25 mg BID PO Last administered on 05/15/16 08: 37; Admin Dose 25 MG; Start 05/14/16 at 11:30 Lisinopril (Zestril) 5 mg BID PO Last administered on 05/15/16 08:48; Admin Dose 5 MG; Start 05/14/16 at 21:00 Atorvastatin Calcium (Lipitor) 20 mg HS PO Last administered on 05/14/16 20:52 ; Admin Dose 20 MG; Start 05/14/16 at 21:00 Chuck Szymanski DO May 15, 2016 19:20
[2016-05-15] MEDS: ATORVASTATIN 20 MG TAB PO SCH (21:03)
[2016-05-16] VITALS (12 sets, daily range): BP systolic 103–112; BP diastolic 74–88; PULSE 78–90; RESP 17–20
[2016-05-16 07:23] LABS: POTASSIUM 4.8 mmol/L (3.5-5.1)
[2016-05-16 07:26] LABS: CREATININE 1.08 mg/dl (0.61-1.24)
[2016-05-16] MEDS: FUROSEMIDE 20 MG TAB PO SCH (09:00)
[2016-05-16] MEDS: METOPROLOL 25 MG TAB PO SCH ×2 (09:00→20:53)
[2016-05-16] MEDS: LISINOPRIL 5 MG TAB PO SCH ×2 (09:00→20:52)
[2016-05-16] MEDS: FAMOTIDINE 20 MG TAB PO SCH ×2 (09:00→20:51)
[2016-05-16] MEDS: ASPIRIN 81 MG TAB PO SCH (09:00)
[2016-05-16] MEDS: ENOXAPARIN 40 MG/0.4 ML SYG SC SCH (09:03)
--- NOTE | 2016-05-16 13:09 | PN ---
Date/Time of Note Date/Time of Note DATE: 05/16/16 TIME: 12:57 Assessment/Plan VTE Prophylaxis VTE Prophylaxis Intervention: LMWH Lines/Catheters IV [facility] Saline Lock Urinary Cath still in place: No Assessment/Plan Assessment/Plan 56-year-old male with: 1. Congestive heart failure exacerbation, acute with diastolic and systolic dysfunction. Likely ischemic cardiomyopathy/CAD per echo findings. Moderate to severe mitral valve regurgitation on echo also with orthopnea mainly. Episodes of NSVT yesterday and today and planning for angio tomorrow Appreciate recommendations from Cardiology/Dr. Szymanski, Continue diuretics, Walter inhibitors, statins and Bblock for now Prophylaxis. Pepcid for gastrointestinal prophylaxis, Lovenox for deep vein thrombosis prophylaxis. DISPOSITION: F/u cardiology recs today and plan for Angio tomorrow Subjective 24 Hr Interval Summary Free Text/Dictation Patient remains orthopneic and with still episodes of NSVT No other complaints Plan for Angio in AM Exam/Review of Systems Vital Signs Vitals Vital Signs Date Time Temp Pulse Resp B/P Pulse Ox O2 Delivery O2 Flow Rate FiO2 05/16/16 12:14 97.8 79 17 110/88 97 05/16/16 08:00 Nasal Cannula 2.0 05/14/16 04:19 21 Intake and Output 05/15/16 05/15/16 05/16/16 15:00 23:00 07:00 Intake Total 750 ml 650 ml Balance 750 ml 650 ml Exam Constitutional: alert, oriented, well developed Respiratory: clear to auscultation, normal air movement Cardiovascular: murmurs/extra sounds (Moderate to severe MR ), nl pulses, regular rate and rhythm Gastrointestinal: non-tender, soft Musculoskeletal: nl extremities to inspection Extremities: normal pulses, other (no edema, clubbign or cyanosis ) Neurological: DIRECTOR DIGITAL CATALOGUE II-XII intact, nl mental status, nl speech, nl strength Results Result Diagram: 05/15/16 0704 05/16/16 0648 Results 24 hrs Laboratory Tests Test 05/16/16 06:48 Anion Gap 15 Blood Urea Nitrogen 23 H Calcium Level 9.0 Carbon Dioxide Level 28 Chloride Level 100 Creatinine 1.08 Glucose Level 157 Magnesium Level 2.1 Potassium Level 4.8 Sodium Level 138 Medications Medications Current Medications Ondansetron HCl (Zofran Inj) 4 mg Q6H PRN IV NAUSEA AND/OR VOMITING; Start at 11:30 Aspirin (Aspirin) 81 mg DAILY PO Last administered on 05/16/16 09:00; Admin Dose 81 MG; Start 05/15/16 at 09:00 Nitroglycerin (Nitroglycerin (Sl Tab) 0.4 Mg) 1 tab Q5M PRN SL CHEST PAIN; Start 05/14/16 at 11:30 Acetaminophen (Tylenol Tab) 650 mg Q6H PRN PO PAIN LEVEL 1-3 OR FEVER; Start at 11:30 Acetaminophen/ Hydrocodone Bitart ([place] (5/325)) 1 tab Q6H PRN PO PAIN LEVEL 4 -6; Start 05/14/16 at 11:30 Acetaminophen/ Hydrocodone Bitart ([place] (5/325)) 2 tab Q6H PRN PO PAIN LEVEL 7 -10; Start 05/14/16 at 11:30 Morphine Sulfate (morphine) 2 mg Q4H PRN IV PAIN LEVEL 7-10; Start 05/14/16 at 11:30 Docusate Sodium (Colace) 100 mg Q12H PRN PO CONSTIPATION; Start 05/14/16 at 11: 30 Magnesium Hydroxide (Milk Of Mag) 30 ml DAILY PRN PO CONSTIPATION; Start at 11:30 Bisacodyl (Dulcolax Supp) 10 mg DAILY PRN [place] CONSTIPATION; Start 05/14/16 at 11 :30 Famotidine (Pepcid) 20 mg Q12 PO Last administered on 05/16/16 09:00; Admin Dose 20 MG; Start 05/14/16 at 21:00 Enoxaparin Sodium (Lovenox) 40 mg DAILY SC Last administered on 05/16/16 09:03 ; Admin Dose 40 MG; Start 05/14/16 at 12:00 Metoprolol Tartrate (Lopressor) 25 mg BID PO Last administered on 05/16/16 09: 00; Admin Dose 25 MG; Start 05/14/16 at 11:30 Lisinopril (Zestril) 5 mg BID PO Last administered on 05/16/16 09:00; Admin Dose 5 MG; Start 05/14/16 at 21:00 Atorvastatin Calcium (Lipitor) 20 mg HS PO Last administered on 05/15/16 21:03 ; Admin Dose 20 MG; Start 05/14/16 at 21:00 Furosemide (Lasix) 40 mg DAILY PO Last administered on 05/16/16t 09:00; Admin Dose 40 MG; Start 05/16/16 at 09:00 HELDER ANTONY May 16, 2016 13:07
--- NOTE | 2016-05-16 13:35 | PN ---
Date/Time of Note Date/Time of Note DATE: 05/16/16 TIME: 13:34 Assessment/Plan VTE Prophylaxis VTE Prophylaxis Intervention: SCD's Lines/Catheters IV Catheter Type (from Nrs): Saline Lock Urinary Cath still in place: No Assessment/Plan Assessment/Plan Acute decompensated systolic and diastolic congestive heart failure Cardiomyopathy with ejection fraction 50% Moderate to severe mitral valve regurgitation Mild to moderate tricuspid valve regurgitation Pulmonary hypertension Hypertension Dyslipidemia NSVT -Patient with recurrent episodes of nonsustained ventricular tachycardia on telemetry. Magnesium supplementation has been ordered. I am concerned that ischemia could possibly be the etiology versus congestive heart failure decompensation. I did discuss cardiac catheterization with the patient. Patient tells me he still unable to lie flat. . Continue beta-ezio, ERIKA inhibitor, adjust diuretics to p.o. may give iv lasix todya x 1 Subjective 24 Hr Interval Summary Free Text/Dictation the patine with some sob and mild orthopnea Exam/Review of Systems Vital Signs Vitals Vital Signs Date Time Temp Pulse Resp B/P Pulse Ox O2 Delivery O2 Flow Rate FiO2 05/16/16 13:30 83 05/16/16 12:14 97.8 17 110/88 97 05/16/16 08:00 Nasal Cannula 2.0 05/14/16 04:19 21 Intake and Output 05/15/16 05/15/16 05/16/16 15:00 23:00 07:00 Intake Total 750 ml 650 ml Balance 750 ml 650 ml Results Result Diagram: 05/15/16 0704 05/16/16 0648 Results 24 hrs Laboratory Tests Test 05/16/16 06:48 Anion Gap 15 Blood Urea Nitrogen 23 H Calcium Level 9.0 Carbon Dioxide Level 28 Chloride Level 100 Creatinine 1.08 Glucose Level 157 Magnesium Level 2.1 Potassium Level 4.8 Sodium Level 138 Medications Medications Current Medications Ondansetron HCl (Zofran Inj) 4 mg Q6H PRN IV NAUSEA AND/OR VOMITING; Start at 11:30 Aspirin (Aspirin) 81 mg DAILY PO Last administered on 05/16/16t 09:00; Admin Dose 81 MG; Start 05/15/16 at 09:00 Nitroglycerin (Nitroglycerin (Sl Tab) 0.4 Mg) 1 tab Q5M PRN SL CHEST PAIN; Start 05/14/16 at 11:30 Acetaminophen (Tylenol Tab) 650 mg Q6H PRN PO PAIN LEVEL 1-3 OR FEVER; Start at 11:30 Acetaminophen/ Hydrocodone Bitart ([place] (5/325)) 1 tab Q6H PRN PO PAIN LEVEL 4 -6; Start 05/14/16 at 11:30 Acetaminophen/ Hydrocodone Bitart ([place] (5/325)) 2 tab Q6H PRN PO PAIN LEVEL 7 -10; Start 05/14/16 at 11:30 Morphine Sulfate (morphine) 2 mg Q4H PRN IV PAIN LEVEL 7-10; Start 05/14/16 at 11:30 Docusate Sodium (Colace) 100 mg Q12H PRN PO CONSTIPATION; Start 05/14/16 at 11: 30 Magnesium Hydroxide (Milk Of Mag) 30 ml DAILY PRN PO CONSTIPATION; Start at 11:30 Bisacodyl (Dulcolax Supp) 10 mg DAILY PRN [place] CONSTIPATION; Start 05/14/16 at 11 :30 Famotidine (Pepcid) 20 mg Q12 PO Last administered on 05/16/16 09:00; Admin Dose 20 MG; Start 05/14/16 at 21:00 Enoxaparin Sodium (Lovenox) 40 mg DAILY SC Last administered on 05/16/16 09:03 ; Admin Dose 40 MG; Start 05/14/16 at 12:00 Metoprolol Tartrate (Lopressor) 25 mg BID PO Last administered on 05/16/16 09: 00; Admin Dose 25 MG; Start 05/14/16 at 11:30 Lisinopril (Zestril) 5 mg BID PO Last administered on 05/16/16 09:00; Admin Dose 5 MG; Start 05/14/16 at 21:00 Atorvastatin Calcium (Lipitor) 20 mg HS PO Last administered on 05/15/16 21:03 ; Admin Dose 20 MG; Start 05/14/16 at 21:00 Furosemide (Lasix) 40 mg DAILY PO Last administered on 05/16/16 09:00; Admin Dose 40 MG; Start 05/16/16 at 09:00 CAROLYN MIDDLETON MD May 16, 2016 13:35
[2016-05-16] MEDS ORDERED: FUROSEMIDE 40 MG INJ IV ONE (14:00)
[2016-05-16] MEDS: ATORVASTATIN 20 MG TAB PO SCH (20:51)
[2016-05-17] VITALS (28 sets, daily range): BP systolic 104–124; BP diastolic 68–103; PULSE 77–102; RESP 12–25
[2016-05-17] MEDS ORDERED: NITROGLYCERIN (IC) 100 MCG/ML INJ ONE (07:10)
[2016-05-17] MEDS ORDERED: HEPARIN 1000 UNITS/ML 10 ML INJ ONE (07:10)
[2016-05-17] MEDS ORDERED: LIDOCAINE 1% (MDV) 20 ML INJ ONE (07:10)
[2016-05-17] MEDS ORDERED: IODIXANOL LOCM 100 ML BTL ONE ×2 (07:10→08:33)
[2016-05-17] MEDS ORDERED: VERAPAMIL 5 MG INJ ONE (07:11)
[2016-05-17 07:29] LABS: POTASSIUM 4.8 mmol/L (3.5-5.1)
[2016-05-17] MEDS ORDERED: MIDAZOLAM 1 MG/ML 2 ML INJ ONE (07:29)
[2016-05-17] MEDS ORDERED: FENTAnyl 50 MCG/ML VIAL ONE (07:29)
[2016-05-17 07:31] LABS: CREATININE 0.96 mg/dl (0.61-1.24)
[2016-05-17 07:32] LABS: CALCIUM 8.4 mg/dl (8.4-10.2)
[2016-05-17 07:41] LABS: MAGNESIUM 1.8 mg/dl (1.7-2.5); PHOSPHORUS 4.1 mg/dl (2.5-4.9)
[2016-05-17] MEDS: ENOXAPARIN 40 MG/0.4 ML SYG SC SCH (08:04)
[2016-05-17] MEDS: FAMOTIDINE 20 MG TAB PO SCH ×2 (08:04→21:26)
[2016-05-17] MEDS: METOPROLOL 25 MG TAB PO SCH ×2 (08:04→21:25)
[2016-05-17] MEDS: ASPIRIN 81 MG TAB PO SCH (08:04)
[2016-05-17] MEDS ORDERED: SOD CHLORIDE 0.9% 500 ML ONE (08:33)
[2016-05-17] MEDS ORDERED: IODIXANOL LOCM 50 ML BTL ONE (08:52)
--- NOTE | 2016-05-17 10:13 | CONS ---
Date/Time of Note Date/Time of Note DATE: 05/17/16 TIME: 10:10 Assessment/Plan Assessment/Plan Additional Assessment/Plan Acute decompensated systolic and diastolic congestive heart failure Cardiomyopathy with ejection fraction 50% Moderate to severe mitral valve regurgitation Mild to moderate tricuspid valve regurgitation Obstructive coronary artery disease Pulmonary hypertension Hypertension Dyslipidemia NSVT -Patient status post cardiac catheterization with chronic total occlusion of RCA and moderate disease in circumflex. Given the setting of coronary artery disease, severe mitral valve regurgitation, recurrent episodes of nonsustained ventricular tachycardia, patient would need surgical revascularization and repair of mitral valve. Continue beta-ezio, ERIKA inhibitor, statin therapy and aspirin. Consultation Date/Type/Reason Admit Date/Time May 14, 2016 at 04:08 Type of Consultation: cv 24 HR Interval Summary Free Text/Dictation Shortness of breath is better, denies chest pain or palpitations Exam/Review of Systems Vital Signs Vitals Vital Signs Date Time Temp Pulse Resp B/P Pulse Ox O2 Delivery O2 Flow Rate FiO2 05/17/16 09:59 86 17 111/72 95 Room Air 05/17/16 09:28 98.1 05/16/16 19:15 2.0 05/14/16 04:19 21 Intake and Output 05/16/16 05/16/16 05/17/16 15:00 23:00 07:00 Intake Total 850 ml Output Total 1400 ml Balance -550 ml Exam No apparent distress Constitutional: alert, oriented Head: normocephalic Neck: supple Respiratory: other (Coarse breath sounds bilaterally, no wheezing) Cardiovascular: other (S1-S2 heard), regular rate and rhythm, systolic murmur Gastrointestinal: bowel sounds, non-tender, soft Extremities: edema (Trace) Results Result Diagram: 05/15/16 0704 05/17/16 0639 Results 24 hrs Laboratory Tests Test 05/17/16 06:39 Anion Gap 15 Blood Urea Nitrogen 22 H Calcium Level 8.4 Carbon Dioxide Level 29 Chloride Level 99 Creatinine 0.96 Glucose Level 176 Magnesium Level 1.8 Phosphorus Level 4.1 Potassium Level 4.8 Sodium Level 138 Medications Medications Current Medications Ondansetron HCl (Zofran Inj) 4 mg Q6H PRN IV NAUSEA AND/OR VOMITING; Start at 11:30 Aspirin (Aspirin) 81 mg DAILY PO Last administered on 05/16/16t 09:00; Admin Dose 81 MG; Start 05/15/16 at 09:00 Nitroglycerin (Nitroglycerin (Sl Tab) 0.4 Mg) 1 tab Q5M PRN SL CHEST PAIN; Start 05/14/16 at 11:30 Acetaminophen (Tylenol Tab) 650 mg Q6H PRN PO PAIN LEVEL 1-3 OR FEVER; Start at 11:30 Acetaminophen/ Hydrocodone Bitart ([place] (5/325)) 1 tab Q6H PRN PO PAIN LEVEL 4 -6; Start 05/14/16 at 11:30 Acetaminophen/ Hydrocodone Bitart ([place] (5/325)) 2 tab Q6H PRN PO PAIN LEVEL 7 -10; Start 05/14/16 at 11:30 Morphine Sulfate (morphine) 2 mg Q4H PRN IV PAIN LEVEL 7-10; Start 05/14/16 at 11:30 Docusate Sodium (Colace) 100 mg Q12H PRN PO CONSTIPATION; Start 05/14/16 at 11: 30 Magnesium Hydroxide (Milk Of Mag) 30 ml DAILY PRN PO CONSTIPATION; Start at 11:30 Bisacodyl (Dulcolax Supp) 10 mg DAILY PRN [place] CONSTIPATION; Start 05/14/16 at 11 :30 Famotidine (Pepcid) 20 mg Q12 PO Last administered on 05/16/16 20:51; Admin Dose 20 MG; Start 05/14/16 at 21:00 Enoxaparin Sodium (Lovenox) 40 mg DAILY SC Last administered on 05/16/16 09:03 ; Admin Dose 40 MG; Start 05/14/16 at 12:00 Metoprolol Tartrate (Lopressor) 25 mg BID PO Last administered on 05/16/16 09: 00; Admin Dose 25 MG; Start 05/14/16 at 11:30 Lisinopril (Zestril) 5 mg BID PO Last administered on 05/16/16 09:00; Admin Dose 5 MG; Start 05/14/16 at 21:00; Status Future Hold Atorvastatin Calcium (Lipitor) 20 mg HS PO Last administered on 05/16/16 20:51 ; Admin Dose 20 MG; Start 05/14/16 at 21:00 Furosemide (Lasix) 40 mg DAILY PO Last administered on 05/16/16 09:00; Admin Dose 40 MG; Start 05/16/16 at 09:00; Status Future Hold Miscellaneous Information (* Miscellaneous Pharmacy Order) Hold all Metformin ... ONCE XX ; Start 05/17/16 at 09:30; Stop 05/19/16 at 09:29 Chuck Szymanski DO May 17, 2016 10:12
[2016-05-17] MEDS ORDERED: MAGNESIUM SULFATE 3 GM in SOD CHLORIDE 0.9% 100 ML IVPB ONE (11:30)
--- NOTE | 2016-05-17 12:18 | CARRPT ---
DATE OF PROCEDURE: 05/17/2016 PROCEDURE: 1. Left heart catheterization. 2. Interpretation and supervision of right and left coronary angiogram. 3. Right and left coronary angiogram. 4. Left ventricular pressure measurements. 5. Attempted PCI of a MAINTENANCE CONSTRUCTION HELPER of the RCA. 6. Right radial artery approach. PATIENT HISTORY: This is a 56-year-old male who presents with decompensated congestive heart failur e, severe mitral regurgitation, and ventricular tachycardia. FINDINGS: HEMODYNAMICS: 1. LV pressure was 120/1 with an EDP of 29. 2. Aortic pressure was 113/79. CORONARY ANATOMY: 1. Left main is a large caliber vessel with no significant disease. 2. LAD is a medium to large caliber vessel. There is a mid 20% stenosis and a distal 30% stenosis. 3. Circumflex is a medium caliber vessel. The mid vessel has a 20% stenosis. The second obtuse ma rginal is a medium caliber vessel with an ostial 70% stenosis. 4. RCA is a medium to large caliber vessel. There is a mid 20% occlusion with right to right colla terals. The PDA is with 20% diffuse stenosis. 5. Ramus intermedius is a medium caliber vessel with ostial 20% stenosis. DESCRIPTION OF PROCEDURE: The patient was brought to the energy systems laboratory director after informed consent. The trent ent was prepped and draped as per protocol. Right radial access was obtained and a 5/6 Cymro sheat h was placed in the right radial artery. A 5-Cymro JL3.5 diagnostic catheter was used to engage th e left main. Angiogram was performed. Next using a 5-Cymro JR4 catheter to enter the left ventric le pressure measurements were obtained, as well as pullback. We next engaged the RCA and angiogram was performed. There was evidence of 100% occlusion of the mid RCA. Given there was some dye hang up, it was unclear if this was subacute or a chronic total occlusion. With that said, heparin was g iven for anticoagulation. A 6-Cymro JR4 guide catheter was used. We initially used a Runthrough w pedro without success. We next used a Fielder XT wire and it would stop continuously at the occlusion . The tactile and the imaging demonstrated this is chronic total occlusion. No further attem pts were made, given the patient with a chronic total occlusion of the RCA, as well as severe mitral regurgitation. All catheters and wires were removed. There were no immediate complications. DIAGNOSES: 1. Obstructive coronary artery disease. 2. Mitral regurgitation. COMPLICATIONS: None. ESTIMATED BLOOD LOSS: Minimal. RECOMMENDATIONS: CT surgery evaluation. Dictated By: LINDY WAITE/JOAQUIM Conf#: [id number] DID#: [id number]
--- NOTE | 2016-05-17 12:34 | RADRPT ---
PROCEDURE: US Carotids. CLINICAL INDICATION: Preop CABG. TECHNIQUE: Multiple sonographic of the carotid arteries were obtained utilizing rojas scale imaging . Color and Doppler imaging was performed. The images were reviewed on a PACS workstation. COMPARISON: No prior studies are available for comparison. FINDINGS: Location Right Left CCA 60 cm/sec 49 cm/sec Prox ICA 52 cm/sec 66 cm/sec Mid ICA 56 cm/sec 60 cm/sec Dist ICA 66 cm/sec 72 cm/sec ECA 67 cm/sec 62 cm/sec ICA/CCA 1.2 1.5 Antegrade flow is seen within the vertebral arteries bilaterally. Moderate plaque is seen within the carotid system bilaterally, especially the carotid bulbs. No hemodynamically significant stenosis or occlusion is identified. IMPRESSION: 1. Moderate bilateral atherosclerotic plaque without evidence for hemodynamically significant stenos is - validated velocity measurements with angiographic measurements, velocity criteria are extrapola tobias from diameter data as defined by the Society of Radiologists in Ultrasound Consensus Conference Radiology 2003; 229;340-346. This study does indirectly reference the measurement of the distal ICA diameter as the denominator for stenosis measurement. 2. Antegrade flow seen within the vertebral arteries bilaterally. SRU Consensus Conference Criteria for the Diagnosis of Carotid Artery Stenosis Degree of Stenosis, % ICA PSV, cm/sec Plaque Estimate, % ICA/CCA PSV Ratio Normal <125 None <2.0 <50 <125 <50 <2.0 50 69 125-230 >50 2.0-4.0 >70 but less than near occlusion >230 >50 <4.0 Near occlusion High, low, or undetectable Visible Variable Total occlusion Undetectable Visible, no detectable lumen Not applicable *Cartoid artery stenosis: rojas-scale and Doppler US diagnosis. Society of Radiologists in Ultrasound Consensus Conference. Radiology 2003; 229: 340-346 RPTAT: JJ .Jamie Subramanian MD, Date Time Electronically viewed and signed by .Jamie Subramanian MD, MD on 05/17/2016 12:34 .A/
--- NOTE | 2016-05-17 15:18 | PN ---
Date/Time of Note Date/Time of Note DATE: 05/17/16 TIME: 14:39 Assessment/Plan VTE Prophylaxis VTE Prophylaxis Intervention: SCD's Lines/Catheters IV Catheter Type (from Nrs): Peripheral IV Urinary Cath still in place: No Assessment/Plan Assessment/Plan 56-year-old male with: 1. Congestive heart failure exacerbation, acute with diastolic and systolic dysfunction, ischemic cardiomyopathy, obstructive CAD and severe MR confirmed on angio today. NSVT also during Angio Need for urgent 2 vessel CABG and MV replacement. Appreciate recommendations from Cardiology/Dr. Szymanski, Continue diuretics, Walter inhibitors, statins and Bblock for now Dr Flores to see patient today and will need to transfer to a [facility] for procedure Prophylaxis. Pepcid for gastrointestinal prophylaxis, Lovenox for deep vein thrombosis prophylaxis. DISPOSITION: F/u CTS recommendations today. Subjective 24 Hr Interval Summary Free Text/Dictation Patient remains stable Some orthopnea still S/p Angiogram this AM and findings of coronary occlusive disease and severe MR and CT surgery evaluation pending Exam/Review of Systems Vital Signs Vitals Vital Signs Date Time Temp Pulse Resp B/P Pulse Ox O2 Delivery O2 Flow Rate FiO2 05/17/16 12:53 98.2 97 20 112/78 95 05/17/16 11:00 Room Air 05/16/16 19:15 2.0 05/14/16 04:19 21 Intake and Output 05/16/16 05/16/16 05/17/16 15:00 23:00 07:00 Intake Total 850 ml Output Total 1400 ml Balance -550 ml Exam Constitutional: alert, oriented, well developed Respiratory: clear to auscultation, normal air movement Cardiovascular: nl pulses, regular rate and rhythm Gastrointestinal: non-tender, soft Musculoskeletal: nl extremities to inspection, nl gait and stance Extremities: normal pulses 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, nl mental status, nl speech, nl strength Results Result Diagram: 05/15/16 0704 05/17/16 0639 Results 24 hrs Laboratory Tests Test 05/17/16 06:39 Anion Gap 15 Blood Urea Nitrogen 22 H Calcium Level 8.4 Carbon Dioxide Level 29 Chloride Level 99 Creatinine 0.96 Glucose Level 176 Magnesium Level 1.8 Phosphorus Level 4.1 Potassium Level 4.8 Sodium Level 138 Medications Medications Current Medications Ondansetron HCl (Zofran Inj) 4 mg Q6H PRN IV NAUSEA AND/OR VOMITING; Start at 11:30 Aspirin (Aspirin) 81 mg DAILY PO Last administered on 05/16/16 09:00; Admin Dose 81 MG; Start 05/15/16 at 09:00 Nitroglycerin (Nitroglycerin (Sl Tab) 0.4 Mg) 1 tab Q5M PRN SL CHEST PAIN; Start 05/14/16 at 11:30 Acetaminophen (Tylenol Tab) 650 mg Q6H PRN PO PAIN LEVEL 1-3 OR FEVER; Start at 11:30 Acetaminophen/ Hydrocodone Bitart ([place] (5/325)) 1 tab Q6H PRN PO PAIN LEVEL 4 -6; Start 05/14/16 at 11:30 Acetaminophen/ Hydrocodone Bitart ([place] (5/325)) 2 tab Q6H PRN PO PAIN LEVEL 7 -10; Start 05/14/16 at 11:30 Morphine Sulfate (morphine) 2 mg Q4H PRN IV PAIN LEVEL 7-10; Start 05/14/16 at 11:30 Docusate Sodium (Colace) 100 mg Q12H PRN PO CONSTIPATION; Start 05/14/16 at 11: 30 Magnesium Hydroxide (Milk Of Mag) 30 ml DAILY PRN PO CONSTIPATION; Start at 11:30 Bisacodyl (Dulcolax Supp) 10 mg DAILY PRN [place] CONSTIPATION; Start 05/14/16 at 11 :30 Famotidine (Pepcid) 20 mg Q12 PO Last administered on 05/16/16 20:51; Admin Dose 20 MG; Start 05/14/16 at 21:00 Enoxaparin Sodium (Lovenox) 40 mg DAILY SC Last administered on 05/16/16 09:03 ; Admin Dose 40 MG; Start 05/14/16 at 12:00 Metoprolol Tartrate (Lopressor) 25 mg BID PO Last administered on 05/16/16 09: 00; Admin Dose 25 MG; Start 05/14/16 at 11:30 Lisinopril (Zestril) 5 mg BID PO Last administered on 05/16/16 09:00; Admin Dose 5 MG; Start 05/14/16 at 21:00; Status Future Hold Atorvastatin Calcium (Lipitor) 20 mg HS PO Last administered on 05/16/16 20:51 ; Admin Dose 20 MG; Start 05/14/16 at 21:00 Furosemide (Lasix) 40 mg DAILY PO Last administered on 05/16/16 09:00; Admin Dose 40 MG; Start 05/16/16 at 09:00; Status Future Hold Miscellaneous Information (* Miscellaneous Pharmacy Order) Hold all Metformin ... ONCE XX ; Start 05/17/16 at 09:30; Stop 05/19/16 at 09:29 Procedures Procedures DATE OF PROCEDURE: 05/17/2016 PROCEDURE: 1. Left heart catheterization. 2. Interpretation and supervision of right and left coronary angiogram. 3. Right and left coronary angiogram. 4. Left ventricular pressure measurements. 5. Attempted PCI of a CRT of the RCA. 6. Right radial artery approach. PATIENT HISTORY: This is a 56-year-old male who presents with decompensated congestive heart failure, severe mitral regurgitation, and ventricular tachycardia. FINDINGS: HEMODYNAMICS: 1. LV pressure was 120/1 with an EDP of 29. 2. Aortic pressure was 113/79. CORONARY ANATOMY: 1. Left main is a large caliber vessel with no significant disease. 2. LAD is a medium to large caliber vessel. There is a mid 20% stenosis and a distal 30% stenosis. 3. Circumflex is a medium caliber vessel. The mid vessel has a 20% stenosis. The second obtuse marginal is a medium caliber vessel with an ostial 70% stenosis. 4. RCA is a medium to large caliber vessel. There is a mid 20% occlusion with right to right collaterals. The PDA is with 20% diffuse stenosis. 5. Ramus intermedius is a medium caliber vessel with ostial 20% stenosis. DESCRIPTION OF PROCEDURE: The patient was brought to the laborer pipeline after informed consent. The patient was prepped and draped as per protocol. Right radial access was obtained and a 5/6 Burmese sheath was placed in the right radial artery. A 5-Burmese JL3.5 diagnostic catheter was used to engage the left main. Angiogram was performed. Next using a 5-Burmese JR4 catheter to enter the left ventricle pressure measurements were obtained, as well as pullback. We next engaged the RCA and angiogram was performed. There was evidence of 100% occlusion of the mid RCA. Given there was some dye hang up, it was unclear if this was subacute or a chronic total occlusion. With that said, heparin was given for anticoagulation. A 6-Burmese JR4 guide catheter was used. We initially used a Runthrough wire without success. We next used a Fielder XT wire and it would stop continuously at the occlusion. The tactile __ ___ and the imaging demonstrated this is chronic total occlusion. No further attempts were made, given the patient with a chronic total occlusion of the RCA , as well as severe mitral regurgitation. All catheters and wires were removed. There were no immediate complications. DIAGNOSES: 1. Obstructive coronary artery disease. 2. Mitral regurgitation. COMPLICATIONS: None. ESTIMATED BLOOD LOSS: Minimal. RECOMMENDATIONS: CT surgery evaluation. HELDER ANTONY May 17, 2016 14:49
--- NOTE | 2016-05-17 18:24 | PN ---
Date/Time of Note Date/Time of Note DATE: 05/17/16 TIME: 18:23 Assessment/Plan Lines/Catheters IV Catheter Type (from Nrs): Peripheral IV Quintanilla in Place (from Nrsg): No Assessment/Plan Assessment/Plan pt seen and full consult dictated will need CABG/MVR, may transfer to [facility] and plan for surgery Saturday unless can be discharged Exam/Review of Systems Vital Signs Vitals Vital Signs Date Time Temp Pulse Resp B/P Pulse Ox O2 Delivery O2 Flow Rate FiO2 05/17/16 16:12 102 05/17/16 15:00 98.1 20 116/87 96 05/17/16 11:00 Room Air 05/16/16 19:15 2.0 05/14/16 04:19 21 Intake and Output 05/16/16 05/16/16 05/17/16 15:00 23:00 07:00 Intake Total 850 ml Output Total 1400 ml Balance -550 ml Results Result Diagram: 05/15/16 0704 05/17/16 0639 HUGO COLES MD May 17, 2016 18:24
--- NOTE | 2016-05-17 18:55 | CONS ---
DATE OF ADMISSION: 05/14/2016 DATE OF CONSULTATION: 05/17/2016 REQUESTING PHYSICIAN: Dr. Szymanski. CONSULTING PHYSICIAN: Yana Flores MD REASON FOR CONSULTATION: Evaluate for CABG, MVR, for severe mitral regurgitation. HISTORY OF PRESENT ILLNESS: The patient is a 56-year-old gentleman who has had progressive shortnes s of breath for 3 weeks. He was seen in urgent care and given antibiotics, but continued to have si gnificant shortness of breath. He was seen in the emergency room and was in congestive heart failur e, and echocardiogram done showed severe MR with an ejection fraction of 40% to 45% with inferior wa ll hypokinesis. He underwent coronary angiogram, which showed a totally occluded RCA with right to right collaterals and left to right collaterals. He also has a smaller second obtuse marginal arter y with a 60-70% ostial stenosis. We were asked to see him regarding mitral valve replacement and CA BG. Patient denies any chest pain. PAST MEDICAL HISTORY: Significant for hypercholesterolemia and hypertension. PAST SURGICAL HISTORY: None. FAMILY HISTORY: Significant for hypertension. SOCIAL HISTORY: Rarely uses alcohol. Former smoker. 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 REVIEW OF SYSTEMS HEENT: Denies any visual or auditory problems. RESPIRATORY: Complains of shortness of breath on exertion. CARDIAC: Denies any palpitation or chest pain. GENITOURINARY: Denies hematuria or dysuria. GASTROINTESTINAL: Denies any blood per rectum, nausea, vomiting. EXTREMITIES: Denies any edema, claudication. NEUROLOGIC: Denies TIA, headaches. SKIN: Denies any lesions or rashes. PHYSICAL EXAMINATION: GENERAL APPEARANCE: Patient awake and alert. VITAL SIGNS: His temperature is 98, blood pressure 120/90, respiratory rate 16. HEAD: Pupils equal, round, react to light. NECK: Supple, no adenopathy, no bruits. LUNGS: Clear to auscultation. CARDIOVASCULAR: Regular rate and rhythm with a III/ systolic ejection murmur radiating to the axi lla. ABDOMEN: Soft, nontender. EXTREMITIES: No edema. NEUROLOGIC: Cranial nerves II through XII intact. Motor and sensory intact. LABORATORY DATA: Hematocrit 45, creatinine is normal at 0.9. ASSESSMENT AND PLAN: This is a 56-year-old gentleman with severe mitral regurgitation and coronary artery disease. I explained to the patient and his the benefits, risks, alternatives of surger y. The risks but not limited to bleeding, infection, stroke, myocardial infarction, respirato ry failure, and . He understands and agrees with surgery. We will decide whether he will go h ome versus keeping him here and doing the surgery as an inpatient. Dictated By: YANA CAMP/JOAQUIM Conf#: [id number] DID#: [id number]
[2016-05-17] MEDS: ATORVASTATIN 20 MG TAB PO SCH (21:25)
[2016-05-18] VITALS (13 sets, daily range): BP systolic 105–119; BP diastolic 56–81; PULSE 81–90; RESP 18–20
--- NOTE | 2016-05-18 06:01 | PN ---
Date/Time of Note Date/Time of Note DATE: 05/18/16 TIME: 06:01 Assessment/Plan Lines/Catheters IV Catheter Type (from Nrs): Saline Lock Quintanilla in Place (from [facility]): No Assessment/Plan Assessment/Plan consider discharging home or transfer to [place] and plan for surgery Saturday Exam/Review of Systems Vital Signs Vitals Vital Signs Date Time Temp Pulse Resp B/P Pulse Ox O2 Delivery O2 Flow Rate FiO2 05/18/16 04:35 81 05/18/16 04:00 98.4 20 112/60 97 Room Air 05/17/16 19:15 2.0 Intake and Output 05/17/16 05/17/16 05/18/16 15:00 23:00 07:00 Intake Total 500 ml Balance 500 ml Results Result Diagram: 05/15/16 0704 05/17/16 0639 HUGO COLES MD May 18, 2016 06:01
[2016-05-18 07:56] LABS: MAGNESIUM 2.1 mg/dl (1.7-2.5); PHOSPHORUS 3.7 mg/dl (2.5-4.9)
[2016-05-18 08:08] LABS: POTASSIUM 4.8 mmol/L (3.5-5.1)
[2016-05-18 08:10] LABS: CREATININE 0.88 mg/dl (0.61-1.24)
[2016-05-18 08:11] LABS: CALCIUM 8.7 mg/dl (8.4-10.2)
[2016-05-18] MEDS: FAMOTIDINE 20 MG TAB PO SCH ×2 (08:35→20:30)
[2016-05-18] MEDS: ASPIRIN 81 MG TAB PO SCH (08:35)
[2016-05-18] MEDS: METOPROLOL 25 MG TAB PO SCH ×2 (08:36→20:30)
[2016-05-18] MEDS: ENOXAPARIN 40 MG/0.4 ML SYG SC SCH (08:39)
--- NOTE | 2016-05-18 15:20 | PN ---
Date/Time of Note Date/Time of Note DATE: 05/18/16 TIME: 15:17 Assessment/Plan VTE Prophylaxis VTE Prophylaxis Intervention: LMWH Lines/Catheters IV C[facility] Type (from [facility] Saline Lock Urinary Cath still in place: No Assessment/Plan Assessment/Plan 56-year-old male with: 1. Congestive heart failure exacerbation, acute with diastolic and systolic dysfunction, ischemic cardiomyopathy, obstructive CAD and severe MR confirmed on angio today. NSVT episodes, last yesterday. Need for urgent 2 vessel CABG and MV replacement. Appreciate recommendations from Cardiology/Dr. Szymanski recommending inpatient intervention, patient to be transferred to [facility] tomorrow 05/19 to scheduled surgery on Saturday @ [address] Flores Continue diuretics, Walter inhibitors, statins and Bblock for now. Prophylaxis. Pepcid for gastrointestinal prophylaxis, Lovenox for deep vein thrombosis prophylaxis. DISPOSITION: Transfer to [facility] on Friday 05/19 . Subjective 24 Hr Interval Summary Free Text/Dictation Patient remains stable Still with some orthopnea, resuming Lasix Appreciate recommendation from Cardiology and CT surgery Exam/Review of Systems Vital Signs Vitals Vital Signs Date Time Temp Pulse Resp B/P Pulse Ox O2 Delivery O2 Flow Rate FiO2 05/18/16 12:16 89 05/18/16 08:42 97.9 18 110/81 100 05/18/16 08:07 Nasal Cannula 2.0 Intake and Output 05/17/16 05/17/16 05/18/16 15:00 23:00 07:00 Intake Total 500 ml 500 ml Balance 500 ml 500 ml Exam Constitutional: alert, oriented, well developed Respiratory: clear to auscultation, normal air movement Cardiovascular: nl pulses, regular rate and rhythm Gastrointestinal: non-tender, soft Musculoskeletal: nl extremities to inspection Extremities: normal pulses, other (no edema, clubbing or cyanosis ) 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, nl mental status, nl speech, nl strength Results Result Diagram: 05/15/16 0704 05/18/16 0654 Results 24 hrs Laboratory Tests Test 05/18/16 06:54 Anion Gap 16 Blood Urea Nitrogen 19 Calcium Level 8.7 Carbon Dioxide Level 28 Chloride Level 100 Creatinine 0.88 Glucose Level 144 Magnesium Level 2.1 Phosphorus Level 3.7 Potassium Level 4.8 Sodium Level 139 Medications Medications Current Medications Ondansetron HCl (Zofran Inj) 4 mg Q6H PRN IV NAUSEA AND/OR VOMITING; Start at 11:30 Aspirin (Aspirin) 81 mg DAILY PO Last administered on 05/18/16 08:35; Admin Dose 81 MG; Start 05/15/16 at 09:00 Nitroglycerin (Nitroglycerin (Sl Tab) 0.4 Mg) 1 tab Q5M PRN SL CHEST PAIN; Start 05/14/16 at 11:30 Acetaminophen (Tylenol Tab) 650 mg Q6H PRN PO PAIN LEVEL 1-3 OR FEVER; Start at 11:30 Acetaminophen/ Hydrocodone Bitart ([place] (5/325)) 1 tab Q6H PRN PO PAIN LEVEL 4 -6; Start 05/14/16 at 11:30 Acetaminophen/ Hydrocodone Bitart ([place] (5/325)) 2 tab Q6H PRN PO PAIN LEVEL 7 -10; Start 05/14/16 at 11:30 Morphine Sulfate (morphine) 2 mg Q4H PRN IV PAIN LEVEL 7-10; Start 05/14/16 at 11:30 Docusate Sodium (Colace) 100 mg Q12H PRN PO CONSTIPATION; Start 05/14/16 at 11: 30 Magnesium Hydroxide (Milk Of Mag) 30 ml DAILY PRN PO CONSTIPATION; Start at 11:30 Bisacodyl (Dulcolax Supp) 10 mg DAILY PRN [place] CONSTIPATION; Start 05/14/16 at 11 :30 Famotidine (Pepcid) 20 mg Q12 PO Last administered on 05/18/16 08:35; Admin Dose 20 MG; Start 05/14/16 at 21:00 Enoxaparin Sodium (Lovenox) 40 mg DAILY SC Last administered on 05/18/16 08:39 ; Admin Dose 40 MG; Start 05/14/16 at 12:00 Metoprolol Tartrate (Lopressor) 25 mg BID PO Last administered on 05/18/16 08: 36; Admin Dose 25 MG; Start 05/14/16 at 11:30 Lisinopril (Zestril) 5 mg BID PO Last administered on 05/16/16 09:00; Admin Dose 5 MG; Start 05/14/16 at 21:00; Status Future Hold Atorvastatin Calcium (Lipitor) 20 mg HS PO Last administered on 05/17/16 21:25 ; Admin Dose 20 MG; Start 05/14/16 at 21:00 Furosemide (Lasix) 40 mg DAILY PO Last administered on 05/16/16 09:00; Admin Dose 40 MG; Start 05/16/16 at 09:00; Status Future Hold Miscellaneous Information (* Miscellaneous Pharmacy Order) Hold all Metformin ... ONCE XX ; Start 05/17/16 at 09:30; Stop 05/19/16 at 09:29 HELDER ANTONY May 18, 2016 15:20
--- NOTE | 2016-05-18 16:43 | CONS ---
Date/Time of Note Date/Time of Note DATE: 05/18/16 TIME: 16:42 Assessment/Plan Assessment/Plan Additional Assessment/Plan Acute decompensated systolic and diastolic congestive heart failure Cardiomyopathy with ejection fraction 50% Moderate to severe mitral valve regurgitation Mild to moderate tricuspid valve regurgitation Obstructive coronary artery disease Pulmonary hypertension Hypertension Dyslipidemia NSVT -Extra dose of Lasix this evening, continue beta-ezio, decrease ERIKA inhibitor dosing because of blood pressure. Plan for mitral valve repair and CABG Consultation Date/Type/Reason Admit Date/Time May 14, 2016 at 04:08 Type of Consultation: cv 24 HR Interval Summary Free Text/Dictation Still with shortness of breath in the evening time, denies chest pain or palpitations Exam/Review of Systems Vital Signs Vitals Vital Signs Date Time Temp Pulse Resp B/P Pulse Ox O2 Delivery O2 Flow Rate FiO2 05/18/16 16:35 98.1 92 18 118/81 95 05/18/16 12:00 Room Air 05/18/16 08:07 2.0 Intake and Output 05/17/16 05/17/16 05/18/16 15:00 23:00 07:00 Intake Total 500 ml 500 ml Balance 500 ml 500 ml Exam No apparent distress Constitutional: alert, oriented Head: normocephalic Neck: supple Respiratory: other (Coarse breath sounds bilaterally, no wheezing) Cardiovascular: other (S1-S2 heard), regular rate and rhythm, systolic murmur Gastrointestinal: bowel sounds, non-tender, other (No guarding), soft Extremities: other (No edema) Results Result Diagram: 05/15/16 0704 05/18/16 0654 Results 24 hrs Laboratory Tests Test 05/18/16 06:54 Anion Gap 16 Blood Urea Nitrogen 19 Calcium Level 8.7 Carbon Dioxide Level 28 Chloride Level 100 Creatinine 0.88 Glucose Level 144 Magnesium Level 2.1 Phosphorus Level 3.7 Potassium Level 4.8 Sodium Level 139 Medications Medications Current Medications Ondansetron HCl (Zofran Inj) 4 mg Q6H PRN IV NAUSEA AND/OR VOMITING; Start at 11:30 Aspirin (Aspirin) 81 mg DAILY PO Last administered on 05/18/16t 08:35; Admin Dose 81 MG; Start 05/15/16 at 09:00 Nitroglycerin (Nitroglycerin (Sl Tab) 0.4 Mg) 1 tab Q5M PRN SL CHEST PAIN; Start 05/14/16 at 11:30 Acetaminophen (Tylenol Tab) 650 mg Q6H PRN PO PAIN LEVEL 1-3 OR FEVER; Start at 11:30 Acetaminophen/ Hydrocodone Bitart ([place] (5/325)) 1 tab Q6H PRN PO PAIN LEVEL 4 -6; Start 05/14/16 at 11:30 Acetaminophen/ Hydrocodone Bitart ([place] (5/325)) 2 tab Q6H PRN PO PAIN LEVEL 7 -10; Start 05/14/16 at 11:30 Morphine Sulfate (morphine) 2 mg Q4H PRN IV PAIN LEVEL 7-10; Start 05/14/16 at 11:30 Docusate Sodium (Colace) 100 mg Q12H PRN PO CONSTIPATION; Start 05/14/16 at 11: 30 Magnesium Hydroxide (Milk Of Mag) 30 ml DAILY PRN PO CONSTIPATION; Start at 11:30 Bisacodyl (Dulcolax Supp) 10 mg DAILY PRN [place] CONSTIPATION; Start 05/14/16 at 11 :30 Famotidine (Pepcid) 20 mg Q12 PO Last administered on 05/18/16 08:35; Admin Dose 20 MG; Start 05/14/16 at 21:00 Enoxaparin Sodium (Lovenox) 40 mg DAILY SC Last administered on 05/18/16 08:39 ; Admin Dose 40 MG; Start 05/14/16 at 12:00 Metoprolol Tartrate (Lopressor) 25 mg BID PO Last administered on 05/18/16 08: 36; Admin Dose 25 MG; Start 05/14/16 at 11:30 Lisinopril (Zestril) 5 mg BID PO Last administered on 05/16/16 09:00; Admin Dose 5 MG; Start 05/14/16 at 21:00; Status Future Hold Atorvastatin Calcium (Lipitor) 20 mg HS PO Last administered on 05/17/16 21:25 ; Admin Dose 20 MG; Start 05/14/16 at 21:00 Furosemide (Lasix) 40 mg DAILY PO Last administered on 05/16/16 09:00; Admin Dose 40 MG; Start 05/16/16 at 09:00; Status Future hold Miscellaneous Information (* Miscellaneous Pharmacy Order) Hold all Metformin ... ONCE XX ; Start 05/17/16 at 09:30; Stop 05/19/16 at 09:29 Chuck Szymanski DO May 18, 2016 16:43
[2016-05-18] MEDS ORDERED: FUROSEMIDE 20 MG INJ IV ONE (17:00)
[2016-05-18] MEDS: ATORVASTATIN 20 MG TAB PO SCH (20:30)
[2016-05-19] VITALS (8 sets, daily range): BP systolic 108–128; BP diastolic 70–90; PULSE 77–91; RESP 16–20
--- NOTE | 2016-05-19 07:23 | PN ---
Date/Time of Note Date/Time of Note DATE: 05/19/16 TIME: 07:22 Assessment/Plan Lines/Catheters IV Catheter Type (from [facility]): Saline Lock Quintanilla in Place (from [facility]): No Assessment/Plan Assessment/Plan to transfer to [facility] for surgery saturday Exam/Review of Systems Vital Signs Vitals Vital Signs Date Time Temp Pulse Resp B/P Pulse Ox O2 Delivery O2 Flow Rate FiO2 05/19/16 04:00 85 05/19/16 00:00 98.5 20 108/70 96 Room Air 2.0 Intake and Output 05/18/16 05/18/16 05/19/16 15:00 23:00 07:00 Intake Total 800 ml 500 ml Balance 800 ml 500 ml Results Result Diagram: 05/15/16 0704 05/18/16 0654 HUGO COLES MD May 19, 2016 07:22
[2016-05-19 08:10] LABS: POTASSIUM 5.1 mmol/L (3.5-5.1)
[2016-05-19 08:13] LABS: CREATININE 0.89 mg/dl (0.61-1.24)
[2016-05-19 08:14] LABS: CALCIUM 9.2 mg/dl (8.4-10.2)
[2016-05-19] MEDS: ASPIRIN 81 MG TAB PO SCH (08:38)
[2016-05-19] MEDS: FUROSEMIDE 20 MG TAB PO SCH (08:39)
[2016-05-19] MEDS: FAMOTIDINE 20 MG TAB PO SCH (08:39)
[2016-05-19] MEDS: METOPROLOL 25 MG TAB PO SCH (08:40)
[2016-05-19] MEDS: ENOXAPARIN 40 MG/0.4 ML SYG SC SCH (08:41)
[2016-05-19] MEDS ORDERED: LISINOPRIL 5 MG TAB PO SCH (09:00)
--- NOTE | 2016-05-19 09:46 | CONS ---
Date/Time of Note Date/Time of Note DATE: 05/19/16 TIME: 09:44 Assessment/Plan Assessment/Plan Chief Complaint/Hosp Course 1) MR 2) Severe CAD 3) LV dysfunction 4) VT 5) CHF systolic and diastolic acute and chronic Problems: Additional Assessment/Plan CABG, MVR continue current meds Consultation Date/Type/Reason Admit Date/Time May 14, 2016 at 04:08 Initial Consult Date Type of Consultation: cv 24 HR Interval Summary Free Text/Dictation able to lie supine, no chest pain, no sob Detailed Summary ENT: no complaints Respiratory: no complaints Cardiovascular: no complaints Gastrointestinal: no complaints Musculoskeletal: no complaints Skin: no complaints Neurologic: no complaints Exam/Review of Systems Vital Signs Vitals Vital Signs Date Time Temp Pulse Resp B/P Pulse Ox O2 Delivery O2 Flow Rate FiO2 05/19/16 08:30 97.4 89 16 112/76 97 Room Air 05/19/16 00:00 2.0 Intake and Output 05/18/16 05/18/16 05/19/16 15:00 23:00 07:00 Intake Total 800 ml 500 ml Balance 800 ml 500 ml Exam Constitutional: alert, oriented Head: atraumatic, normocephalic Neck: supple Respiratory: clear to auscultation Cardiovascular: regular rate and rhythm Gastrointestinal: soft Musculoskeletal: nl extremities to inspection Results Result Diagram: 05/15/16 0704 05/19/16 0710 Results 24 hrs Laboratory Tests Test 05/19/16 07:10 Anion Gap 16 Blood Urea Nitrogen 20 Calcium Level 9.2 Carbon Dioxide Level 28 Chloride Level 101 Creatinine 0.89 Glucose Level 165 Magnesium Level 2.0 Potassium Level 5.1 Sodium Level 140 Medications Medications Current Medications Ondansetron HCl (Zofran Inj) 4 mg Q6H PRN IV NAUSEA AND/OR VOMITING; Start at 11:30 Aspirin (Aspirin) 81 mg DAILY PO Last administered on 05/19/16t 08:38; Admin Dose 81 MG; Start 05/15/16 at 09:00 Nitroglycerin (Nitroglycerin (Sl Tab) 0.4 Mg) 1 tab Q5M PRN SL CHEST PAIN; Start 05/14/16 at 11:30 Acetaminophen (Tylenol Tab) 650 mg Q6H PRN PO PAIN LEVEL 1-3 OR FEVER; Start at 11:30 Acetaminophen/ Hydrocodone Bitart ([place] (5/325)) 1 tab Q6H PRN PO PAIN LEVEL 4 -6; Start 05/14/16 at 11:30 Acetaminophen/ Hydrocodone Bitart ([place] (5/325)) 2 tab Q6H PRN PO PAIN LEVEL 7 -10; Start 05/14/16 at 11:30 Morphine Sulfate (morphine) 2 mg Q4H PRN IV PAIN LEVEL 7-10; Start 05/14/16 at 11:30 Docusate Sodium (Colace) 100 mg Q12H PRN PO CONSTIPATION; Start 05/14/16 at 11: 30 Magnesium Hydroxide (Milk Of Mag) 30 ml DAILY PRN PO CONSTIPATION; Start at 11:30 Bisacodyl (Dulcolax Supp) 10 mg DAILY PRN [place] CONSTIPATION; Start 05/14/16 at 11 :30 Famotidine (Pepcid) 20 mg Q12 PO Last administered on 05/19/16 08:39; Admin Dose 20 MG; Start 05/14/16 at 21:00 Enoxaparin Sodium (Lovenox) 40 mg DAILY SC Last administered on 05/19/16 08:41 ; Admin Dose 40 MG; Start 05/14/16 at 12:00 Metoprolol Tartrate (Lopressor) 25 mg BID PO Last administered on 05/19/16 08: 40; Admin Dose 25 MG; Start 05/14/16 at 11:30 Atorvastatin Calcium (Lipitor) 20 mg HS PO Last administered on 05/18/16 20:30 ; Admin Dose 20 MG; Start 05/14/16 at 21:00 Furosemide (Lasix) 40 mg DAILY PO Last administered on 05/19/16 08:39; Admin Dose 40 MG; Start 05/16/16 at 09:00; Status Future hold Lisinopril (Zestril) 5 mg DAILY PO Last administered on 05/19/16 08:40; Admin Dose 5 MG; Start 05/19/16 at 09:00 GERALDINE MARCOS MD May 19, 2016 09:46
--- NOTE | 2016-05-19 16:36 | PDOCDIS ---
Discharge Instructions DIAGNOSIS Discharge Diagnosis: Mitral valve disease, severe multi-vessel coronary artery disease CONDITION Patient Condition: Fair HOME CARE INSTRUCTIONS: Diet Instructions: Low Fat /CholesterolSpecial Diet: Cardiac 2 GM Na ACTIVITY: Activity Restrictions: Partial Weight Bearing FOLLOW UP/APPOINTMENTS Appointments Transfer to [facility] for cardiac surgery by EFRAIN Shepherd M.D. May 19, 2016 16:36
[2016-05-19] MEDS ORDERED: NS3ML IV (16:40)
[2016-05-19] MEDS ORDERED: METO-448 PO (16:40)
[2016-05-19] MEDS ORDERED: DULR PR (16:40)
[2016-05-19] MEDS ORDERED: DOCU-216 PO (16:40)
[2016-05-19] MEDS ORDERED: LISI-313 PO (16:40)
[2016-05-19] MEDS ORDERED: ONDA4VIA2 IV (16:40)
[2016-05-19] MEDS ORDERED: FAMO20TA18 PO (16:40)
[2016-05-19] MEDS ORDERED: LOV40I SC (16:40)
[2016-05-19] MEDS ORDERED: ASPI81TA3 PO (16:40)
[2016-05-19] MEDS ORDERED: ATOR20TA65 PO (16:40)
[2016-05-19] MEDS ORDERED: ACET325T33 PO (16:40)
[2016-05-19] MEDS ORDERED: NIT4 SL (16:40)
[2016-05-19] MEDS ORDERED: LAS20 PO (16:40)
[2016-05-19] MEDS ORDERED: HYDR-3498 PO (16:40)
--- NOTE | 2016-05-19 16:50 | DS ---
Date/Time of Note Date/Time of Note DATE: 05/19/16 TIME: 16:42 Discharge Summary Admission/Discharge Info Admit Date/Time May 14, 2016 at 04:08 Discharge Date/Time May 19, 2016 Final Diagnosis CHF, severe coronary disease, and severe mitral regurgitation Patient Condition: Fair Consults Hugo Coles MD (thoracic surgery) Chuck Szymanski MD (cardiology) Procedures Echo, cardiac catheterization, carotid Doppler Hx of Present Illness Mr. Bradford is a 56-year-old man with a history of hypertension and hyperlipidemia who presented to the [facility] emergency department with progressive orthopnea for the preceding three weeks. He was seen in a [place] urgent care center for an episode of orthopnea while trying to sleep. He was diagnosed with an upper respiratory infection. He denied chest pain, nausea or vomiting, and was compliant with his benazepril. About 3 years ago he was seen here in the hospital for chest pain, but left against medical advice and has not had cardiology followup as an outpatient. ALLERGIES: NO KNOWN ALLERGIES Hospital Course In the emergency department, he was given a dose of Lasix. His BNP was elevated at 6720. He was admitted for congestive heart failure exacerbation. Lab testing showed white blood cell count of 9.1, hemoglobin 15.2, hematocrit 45.2, platelet count of 216. Chemistry with a sodium of 141, potassium 4.3, chloride 107, bicarbonate 23, BUN 17, creatinine 0.98, glucose of 129. Total bilirubin 0.6, AST 38, ALT 48, alkaline phosphatase 57. Troponin negative x2. Albumin 3.6 , total protein 6.1, cholesterol 171, LDL 99, HDL 49. TSH 0.730, free T4 1.33. INR is 1.0, PT 13.2, PTT 27.6. Portable chest x-ray showed moderate cardiomegaly and pulmonary venous congestion, with aortic atherosclerosis. EKG on admission showed sinus tachycardia with some PVCs and also LVH. Echocardiogram showed ejection fraction of 50%, with decreased diastolic function and hypokinetic inferolateral and mid segments and inferolateral base. He had moderate enlargement of the left atrium, mild enlargement of right atrium , moderate to severe mitral valve regurgitation, mild to moderate tricuspid regurgitation. Carotid Doppler showed moderate bilateral atherosclerotic plaque without evidence for hemodynamically significant stenosis. He was admitted to telemetry and ruled out for an acute coronary syndrome. On he underwent left heart catheterization, with right and left coronary angiogram that showed LV pressure was 120/1 with an EDP of 29, and aortic pressure of 113/79. His coronary anatomy showed the left main with a large caliber vessel and no significant disease; LAD is a medium to large caliber vessel with a mid 20% stenosis and a distal 30% stenosis; the circumflex was a medium caliber vessel with the mid vessel having a 20% stenosis; the second obtuse marginal was a medium caliber vessel with an ostial 70% stenosis; The RCA was a medium to large caliber vessel, with a mid 20% occlusion with right to right collaterals; the PDA was with 20% diffuse stenosis; lastly, the ramus intermedius was a medium caliber vessel with ostial 20% stenosis. This morning he was very comfortable, with no headache, visual change, chest pain or dyspnea. HEENT: Pupils normal. Extraocular muscles are intact. Anicteric sclerae. NECK: No JVD, no thyromegaly noted. HEART: Regular rhythm, normal rate. 4/6 systolic murmur at the apex, radiating to the rest of the precordium. Good peripheral perfusion. LUNGS: Clear bilaterally, with no crackles. ABDOMEN: Soft, nontender, nondistended. Bowel sounds are present. EXTREMITIES: No edema, clubbing or cyanosis noted. NEUROLOGIC: Alert, oriented, cranial nerves and motor exams intact. Toes downgoing. Home Meds Active Scripts Sodium Chloride* (NS* 3 ml (Saline Flush)) 3 Ml Soln, 3 ML IV .PER PROTOCOL for 30 Days Prov:EFRAIN SANDOVAL MReglaDRegla 05/19/16 Ondansetron Hcl* (Ondansetron Hcl* Inj) 4 Mg/2 Ml Vial, 4 MG IV Q6H Y for NAUSEA AND/OR VOMITING for 30 Days, VIAL Prov:EFRAIN SANDOVAL MReglaDRegla 05/19/16 Nitroglycerin* (Nitrostat*) 0.4 Mg Tab.subl, 1 TAB SL Q5M Y for CHEST PAIN for 30 Days Prov:EFRAIN SANDOVAL. MReglaDRegla 05/19/16 Metoprolol Tartrate* (Lopressor*) 25 Mg Tab, 25 MG PO BID for 30 Days, TAB Prov:EFRAIN SANDOVAL. MReglaD. 05/19/16 Lisinopril* (Lisinopril*) 5 Mg Tablet, 5 MG PO DAILY for 30 Days, TAB Prov:EFRAIN SANDOVAL M.D. 05/19/16 Hydrocodone Bit-Acetaminophen (Hydrocodone Bit-APAP) 5-325MG Tablet, 2 TAB PO Q6H Y for PAIN LEVEL 7-10 for 30 Days, TAB Prov:EFRAIN SANDOVAL M.D. 05/19/16 Hydrocodone Bit-Acetaminophen (Hydrocodone Bit-APAP) 5-325MG Tablet, 1 TAB PO Q6H Y for PAIN LEVEL 4-6 for 30 Days, TAB Prov:EFRAIN SANDOVAL M.D. 05/19/16 Furosemide (Lasix) 20 Mg Tab, 40 MG PO DAILY for 30 Days, TAB Prov:EFRAIN SANDOVAL M.D. 05/19/16 Famotidine* (Famotidine*) 20 Mg Tablet, 20 MG PO Q12 for 30 Days, TAB Prov:EFRAIN SANDOVAL M.D. 05/19/16 Enoxaparin Sodium* (Enoxaparin Sodium*) 40 Mg/0.4 Ml Syringe, 40 MG SC DAILY for 30 Days Prov:EFRAIN SANDOVAL M.D. 05/19/16 Docusate Sodium (Dok) 100 Mg Capsule, 100 MG PO Q12H Y for CONSTIPATION for 30 Days, CAP Prov:EFRAIN SANDOVAL M.D. 05/19/16 Bisacodyl* (Bisacodyl*) 10 Mg Supp, 10 MG RI DAILY Y for CONSTIPATION for 30 Days, SUPP Prov:EFRAIN SANDOVAL M.D. 05/19/16 Atorvastatin Calcium (Atorvastatin Calcium) 20 Mg Tablet, 20 MG PO HS for 30 Days, TAB Prov:EFRAIN SANDOVAL M.D. 05/19/16 Aspirin (Aspirin) 81 Mg Chew, 81 MG PO DAILY for 30 Days, TAB Prov:EFRAIN SANDOVAL M.D. 05/19/16 Acetaminophen* (Tylenol*) 325 Mg Tablet, 650 MG PO Q6H Y for PAIN LEVEL 1-3 OR FEVER for 30 Days, TAB Prov:EFRAIN SANDOVAL M.D. 05/19/16 Reported Medications Benazepril Hcl* (Benazepril Hcl*) 10 Mg Tablet, 10 MG PO DAILY, #30 TAB 05/14/16 Follow-up Plan Transfer to service of Dr. Cynthia Bush at [facility], with anticipated surgery by Dr. Coles on Saturday, 21 May 2016. Pending Labs Laboratory Tests Test 05/19/16 07:10 Anion Gap 16 (8-16) Blood Urea Nitrogen 20mg/dl (7-20) Calcium Level 9.2mg/dl (8.4-10.2) Carbon Dioxide Level 28mmol/L (21-31) Chloride Level 101mmol/L (97-110) Creatinine 0.89mg/dl (0.61-1.24) Glucose Level 165mg/dl (70-220) Magnesium Level 2.0mg/dl (1.7-2.5) Potassium Level 5.1mmol/L (3.5-5.1) Sodium Level 140mmol/L (135-144) Copies To: CC: HUGO COLES MD; HELDER ANTONY JOHN P. M.D. May 19, 2016 16:49 5.1mmol/L (3.5-5.1) Sodium Level 140mmol/L (135-144) EFRAIN SANDOVAL M.D. May 19, 2016 16:49
--- NOTE | 2016-05-22 17:40 | RADRPT ---
Vent Rate: 98 bpm RR Interval: 0 msec NC Interval: 148 msec QRS Duration: 98 msec QT Interval: 376 msec QTC Interval: 480 msec P-R-T [place]: 56 - 56 - -7 degrees Normal sinus rhythm Possible Left atrial enlargement Left ventricular hypertrophy Nonspecific T wave abnormality Prolonged QT Abnormal ECG Electronically Signed By: Mike Cabrera [id number]
== END 2016-05-19 17:46 | disposition short-term general hospital (02) | DRG 286 ==
LOC: FTE 01:45 → MS4 04:08
PROVIDERS: ADMIT Internal Medicine; ATTEND Internal Medicine
PROC: B2051ZZ Plain Radiography of Left Heart using Low Osmolar Contrast (ICD-10-PCS; 2016-05-17)
PROC: 4A023N7 Measurement of Cardiac Sampling and Pressure, Left Heart, Percutaneous Approach (ICD-10-PCS; principal; 2016-05-17 08:00)
PROC: B2011ZZ Plain Radiography of Multiple Coronary Arteries using Low Osmolar Contrast (ICD-10-PCS; 2016-05-17 08:00)
DX: I34.0 Nonrheumatic mitral (valve) insufficiency (principal); I50.43 Acute on chronic combined systolic (congestive) and diastolic (congestive) heart failure; I25.82 Chronic total occlusion of coronary artery; I27.2 Other secondary pulmonary hypertension; I36.1 Nonrheumatic tricuspid (valve) insufficiency; I25.5 Ischemic cardiomyopathy; I11.0 Hypertensive heart disease with heart failure; I25.10 Atherosclerotic heart disease of native coronary artery without angina pectoris; Z87.891 Personal history of nicotine dependence; E78.5 Hyperlipidemia, unspecified
CPT/HCPCS: 71010; 80048; 80053; 80061; 82550; 82553; 83735; 83880; 84100; 84439; 84443; 84484; 85025; 85610; 85730; 90686; 93005; 93306; 93458; 93880; 94664; J1940; C1769; C1887; J1644; J1650; J2250; J3010; J3475; J7040; Q9967

== ENCOUNTER 2018-07-14 16:31 | Emergency (ER) | payer OTHER ==
[~2018-07-14] VITALS: Ht 170.2 cm; Wt 58.2 kg
[~2018-07-14 16:31] MED LIST: ACET325T33 PO; ASPI-831 PO; ATOR20TA65 PO; BENA10TA4 PO; BISA10SU75 PR; DOCU-216 PO; ENOX40DI2 SC; FAMO20TA18 PO; HYDR-3601 PO; LAS20 PO; LISI-313 PO; METO-448 PO; NITR0.4T39 SL; NS3ML IV; ONDA4VIA6 IV
[2018-07-14 16:59] VITALS: Ht 170.2 cm; Wt 58.2 kg
[2018-07-15] MEDS ORDERED: WARF4TAB64 PO (01:38)
[2018-07-15] MEDS ORDERED: FURO20TA3 PO ×2 (01:38→10:19)
[2018-07-15] MEDS ORDERED: AMIO200T4 PO (01:38)
--- NOTE | 2018-07-15 05:45 | ERD ---
ER Documentation Chief Complaint Chief Complaint short of breath x3 days worse today, AICD 2yrs ago HPI This is a very pleasant 58-year-old comes in with shortness of breath for 3 days has been getting gradually worse. Patient had AICD placed 2 years ago along with cardiac stenting. No fevers no chills no nausea vomiting. Does complain of orthopnea and dyspnea on exertion. Also complains of shortness of breath at rest ROS All systems reviewed and are negative except as per history of present illness. Medications Home Meds Active Scripts Nitroglycerin* (Nitrostat*) 0.4 Mg Tab.subl, 1 TAB SL Q5M PRN for CHEST PAIN for 30 Days Prov:EFRAIN SANDOVAL M.D. 05/19/16 Aspirin (Aspirin) 81 Mg Chew, 81 MG PO DAILY for 30 Days, TAB Prov:EFRAIN SANDOVAL M.D. 05/19/16 Acetaminophen* (Tylenol*) 325 Mg Tablet, 650 MG PO Q6H PRN for PAIN LEVEL 1-3 OR FEVER for 30 Days, TAB Prov:EFRAIN SANDOVAL M.D. 05/19/16 Reported Medications Amiodarone Hcl* (Amiodarone Hcl*) 200 Mg Tablet, 200 MG PO DAILY, #30 TAB 07/15/18 Furosemide* (Furosemide*) 20 Mg Tablet, 20 MG PO DAILY for 30 Days, #30 TAKE 1 TABLET BY MOUTH EVERY DAY 07/15/18 Warfarin Sodium* (Warfarin Sodium*) 4 Mg Tablet, 4 MG PO DAILY for 30 Days, #30 07/15/18 Discontinued Reported Medications Benazepril Hcl* (Benazepril Hcl*) 10 Mg Tablet, 10 MG PO DAILY, #30 TAB 05/14/16 Discontinued Scripts Sodium Chloride* (NS* 3 ml (Saline Flush)) 3 Ml Soln, 3 ML IV .PER PROTOCOL for 30 Days Prov:ERFAIN SANDOVAL M.D. 05/19/16 Ondansetron Hcl* (Ondansetron Hcl* Inj) 4 Mg/2 Ml Vial, 4 MG IV Q6H PRN for NAUSEA AND/OR VOMITING for 30 Days, VIAL Prov:EFRAIN SANDOVAL M.D. 05/19/16 Metoprolol Tartrate* (Lopressor*) 25 Mg Tab, 25 MG PO BID for 30 Days, TAB Prov:EFRAIN SANDOVAL M.D. 05/19/16 Lisinopril* (Lisinopril*) 5 Mg Tablet, 5 MG PO DAILY for 30 Days, TAB Prov:EFRAIN SANDOVAL M.D. 05/19/16 Hydrocodone Bit-Acetaminophen (Hydrocodone Bit-APAP) 5-325MG Tablet, 2 TAB PO Q6H PRN for PAIN LEVEL 7-10 for 30 Days, TAB Prov:EFRAIN SANDOVAL M.D. 05/19/16 Hydrocodone Bit-Acetaminophen (Hydrocodone Bit-APAP) 5-325MG Tablet, 1 TAB PO Q6H PRN for PAIN LEVEL 4-6 for 30 Days, TAB Prov:EFRAIN SANDOVAL M.D. 05/19/16 Furosemide (Lasix) 20 Mg Tab, 40 MG PO DAILY for 30 Days, TAB Prov:EFRAIN SANDOVAL M.D. 05/19/16 Famotidine* (Famotidine*) 20 Mg Tablet, 20 MG PO Q12 for 30 Days, TAB Prov:EFRAIN SANDOVAL M.D. 05/19/16 Enoxaparin Sodium* (Enoxaparin Sodium*) 40 Mg/0.4 Ml Syringe, 40 MG SC DAILY for 30 Days Prov:EFRAIN SANDOVAL M.D. 05/19/16 Docusate Sodium (Dok) 100 Mg Capsule, 100 MG PO Q12H PRN for CONSTIPATION for 30 Days, CAP Prov:EFRAIN SANDOVAL M.D. 05/19/16 Bisacodyl* (Bisacodyl*) 10 Mg Supp, 10 MG MT DAILY PRN for CONSTIPATION for 30 Days, SUPP Prov:EFRAIN SANDOVAL M.D. 05/19/16 Atorvastatin Calcium (Atorvastatin Calcium) 20 Mg Tablet, 20 MG PO HS for 30 Days, TAB Prov:EFRAIN SANDOVAL M.D. 05/19/16 Allergies Allergies: Coded Allergies: No Known Allergy (Unverified , 07/15/18) PMhx/Soc History of Surgery: Yes (open heart, defibrillator) Anesthesia Reaction: No Hx Neurological Disorder: No Hx Respiratory Disorders: No Hx Cardiac Disorders: Yes (hypertension, ) Hx Psychiatric Problems: No Hx Miscellaneous Medical Probl: No Hx Alcohol Use: Yes (once a month ) Hx Substance Use: No Hx Tobacco Use: Yes (smoker for 30 years, quit 3 years ago) Smoking Status: Former smoker Physical Exam Vitals Vital Signs Date Temp Pulse Resp B/P (MAP) Pulse Ox O2 O2 Flow FiO2 Time Delivery Rate 07/14/18 82 25 114/90 93 Room Air 22:54 (98) 07/14/18 98.4 92 18 143/101 100 16:59 (115) Physical Exam Const: No acute distress Head: Atraumatic Eyes: Normal Conjunctiva ENT: Normal External Ears, Nose and Mouth. Neck: Full range of motion. No meningismus. Resp: Clear to auscultation bilaterally Cardio: Regular rate and rhythm, no murmurs Abd: Soft, non tender, non distended. Normal bowel sounds Skin: No petechiae or rashes Back: No midline or flank tenderness Ext: No cyanosis, or edema Neur: Awake and alert Psych: Normal Mood and Affect Result Diagram: 07/14/18214207/14/182142 Results 24 hrs Laboratory Tests Test 07/14/18 21:43 White Blood Count 9.0 10^3/ul Red Blood Count 5.05 10^6/ul Hemoglobin 15.1 g/dl Hematocrit 44.8 % Mean Corpuscular Volume 88.7 fl Mean Corpuscular Hemoglobin 29.9 pg Mean Corpuscular Hemoglobin Concent 33.7 g/dl Red Cell Distribution Width 14.2 % Platelet Count 196 10^3/UL Mean Platelet Volume 10.2 fl Immature Granulocytes % 0.300 % Neutrophils % 62.3 % Lymphocytes % 27.0 % Monocytes % 8.9 % Eosinophils % 1.2 % Basophils % 0.3 % Nucleated Red Blood Cells % 0.0 /100WBC Immature Granulocytes # 0.030 10^3/ul Neutrophils # 5.6 10^3/ul Lymphocytes # 2.4 10^3/ul Monocytes # 0.8 10^3/ul Eosinophils # 0.1 10^3/ul Basophils # 0.0 10^3/ul Nucleated Red Blood Cells # 0.0 10^3/ul Prothrombin Time 24.6 Sec Prothrombin Time Ratio 1.9 INR International Normalized Ratio 2.21 Activated Partial Thromboplast Time 38.8 Sec Sodium Level 139 mmol/L Potassium Level 4.2 mmol/L Chloride Level 109 mmol/L Carbon Dioxide Level 22 mmol/L Anion Gap 8 Blood Urea Nitrogen 23 mg/dl Creatinine 0.97 mg/dl Est Glomerular Filtrat Rate mL/min > 60 mL/min Glucose Level 103 mg/dl Calcium Level 8.9 mg/dl Total Bilirubin 1.8 mg/dl Direct Bilirubin 0.00 mg/dl Indirect Bilirubin 1.8 mg/dl Aspartate Amino Transf (AST/SGOT) 56 IU/L Alanine Aminotransferase (ALT/SGPT) 71 IU/L Alkaline Phosphatase 53 IU/L Troponin I 0.114 ng/ml B-Type Natriuretic Peptide 76626 PG/ML Total Protein 6.1 g/dl Albumin 3.3 g/dl Globulin 2.80 g/dl Albumin/Globulin Ratio 1.17 Current Medications Medications Dose Sig/Ruben Start Time Status Last (Trade) Ordered Route PRN Stop Time Admin Dose Reason Admin Furosemide 80 mg ONCE ONCE 07/15/18 DC 07/14/18 (Lasix) IV 00:00 23:52 07/15/18 00:01 Procedures/MDM EKG: Rate/Rhythm: [Normal Sinus Rhythm] QRS, ST, T-waves: [No changes consistent w/ acute ischemia] Impression: [No evidence of ischemia or arrhythmia] Chest X-ray 1V Interpreted by me: Soft Tissue: No acute abnormalities Bones: No acute abnormalities Mediastinum/Cardiac Silhouette/Lungs: [No acute abnormalities] Patient's heart failure symptoms is concerning for acute decompensation and will require inpatient workup and monitoring. Further w/u for ischemia, arrhythmia, PE or dissection will be deferred to the inpatient team. Accepting Care Team: Current data and ongoing care discussed. Time: 12 AM Primary Provider: Hospitalist service Consulting: Deferred to inpatient team Outstanding Data: none Departure Diagnosis: Primary Impression: CHF (congestive heart failure) Heart failure type: unspecified Heart failure chronicity: unspecified Qualified Codes: I50.9 - Heart failure, unspecified Condition: Serious SIMIN VASQUEZ Jul 15, 2018 05:45
[2018-07-15] MEDS ORDERED: LISI-313 PO (10:19)
--- NOTE | 2018-07-15 10:20 | PDOCDIS ---
Discharge Instructions CONDITION [id number] Patient Condition: [id number] Good HOME CARE INSTRUCTIONS: [id number] Diet Instructions: [id number] FOLLOW UP/APPOINTMENTS Follow-up Plan pcp 1 week cardiology 1 week OTHER ORDERS: Other Orders: limit fluid intake to 1200 cc per day ALEXIA CARMONA MD Jul 15, 2018 10:20
[2018-07-15] MEDS ORDERED: WARFARIN 2 MG TAB PO SCH (10:30)
[2018-07-15] MEDS ORDERED: FUROSEMIDE 40 MG INJ IV ONE ×2 (10:30)
[2018-07-15] MEDS ORDERED: LISINOPRIL 5 MG TAB PO SCH (10:30)
[2018-07-15] MEDS ORDERED: ASPIRIN 81 MG TAB PO SCH (10:30)
[2018-07-15] MEDS ORDERED: ACETAMINOPHEN 325 MG TAB PO PRN (10:30)
[2018-07-15] MEDS ORDERED: AMIODARONE 200 MG TAB PO SCH (10:30)
[2018-07-15] MEDS ORDERED: NITROGLYCERIN (SL) 0.4 MG TAB SL PRN (10:30)
[2018-07-15] MEDS ORDERED: BUMETANIDE 25 MG in DEXTROSE 5% 150 ML IV SCH (11:00)
[2018-07-15 11:20] VITALS: BP 131/98; PULSE 80; RESP 18
--- NOTE | 2018-07-15 13:29 | HP ---
DATE OF ADMISSION: 07/14/2018 CHIEF COMPLAINT: Shortness of breath and dyspnea on exertion. HISTORY OF PRESENT ILLNESS: A 58-year-old male with a history of ischemic cardiomyopathy status post ICD placement about 2 years prior to admission, presented to Emergency Room with complaint of shortn ess of breath at rest and dyspnea on exertion. The patient denied any chest pain. No nausea or vomi ting or diaphoresis. Initial evaluation revealed evidence of congestive heart failure exacerbation. BNP was elevated to 10,600. Basic metabolic panel and CBC were within normal limits. EKG does not show any acute changes. PAST MEDICAL HISTORY: 1. Coronary artery disease, status post PCI. 2. Ischemic cardiomyopathy. 3. Chronic atrial fibrillation. PAST SURGICAL HISTORY: Status post ICD placement. MEDICATIONS PRIOR TO ADMISSION: 1. Tylenol. 2. Amiodarone. 3. Aspirin. 4. Sublingual nitroglycerin 5. Warfarin. SOCIAL HISTORY: Patient lives at home. He denies tobacco or alcohol use. PHYSICAL EXAMINATION: GENERAL: Well-developed, well-nourished gentleman who is in no apparent distress. VITAL SIGNS: Blood pressure 126/95, pulse 78, temperature 98.4, saturation on room air 94%. HEENT: Extraocular muscles intact. Pupils equal and reactive to light bilaterally. Sclerae are ani cteric. Oropharynx is clear and moist. NECK: Supple, no JVD, no carotid bruits. LUNGS: Clear to auscultation bilaterally. CARDIAC: Regular rate and rhythm. No murmurs, rubs or gallops. ABDOMEN: Soft, nontender, nondistended, normoactive bowel sounds. EXTREMITIES: No clubbing, cyanosis, or edema. NEUROLOGICAL: Nonfocal. Abdominopelvic CT was unremarkable except moderate to severe atheroscleroti c arterial calcification. Chest x-ray showed pulmonary vascular congestion. ASSESSMENT: 1. A 58-year-old male with acute systolic congestive heart failure exacerbation. 2. History of ischemic cardiomyopathy. 3. Status post ICD placement 2 years prior to admission. 4. Chronic atrial fibrillation. PLAN: Place in tele observation on IV Lasix, resume home medications. Cardiac diet. Add Lisinopril 5 mg daily. Dictated By: ALEXIA AARON/JOAQUIM Conf#: [id number] DID#: [id number]
--- NOTE | 2018-07-15 14:46 | DS ---
DATE OF ADMISSION: 07/14/2018 DATE OF DISCHARGE: 07/15/2018 DISCHARGE DIAGNOSES: 1. Acute systolic congestive heart failure exacerbation, resolved. 2. Ischemic cardiomyopathy. 3. Chronic atrial fibrillation. 4. Status post ICD placement. HOSPITAL COURSE: 1. A 58-year-old male with history of ischemic cardiomyopathy status post PCI 2 years prior to admis marjan, followed by ICD placement, presented with a complaint of shortness of breath and dyspnea on exe rtion. The patient denied any chest pain. He was found to have acute congestive heart failure exace rbation. Patient received IV Lasix and more than 3 liters of urine output was measured in the [facility]. He had significant relief of symptoms. Patient was receiving another dose of IV Lasix juan or to discharge. Room air saturation was 94%. He is in a stable condition for discharge. His Lasix was increased to 40 mg daily and I added lisinopril 5 mg daily. MEDICATIONS ON DISCHARGE: 1. Amiodarone 200 mg daily. 2. Aspirin 81 mg daily. 3. Warfarin 4 mg daily. 4. Nitroglycerin sublingual as needed. 5. Lasix 40 mg daily and Lisinopril 5 mg daily. FOLLOW UP: 1. With PCP in 1 week. 2. Follow up with cardiology in 1 week. Dictated By: ALEXIA AARON/JOAQUIM Conf#: [id number] DID#: [id number]
== END 2018-07-15 11:20 | disposition home or self-care (01) ==
LOC: E/R 16:31 → CANBEDREQ 07-15 18:35
DX: I50.9 Heart failure, unspecified (principal); I10 Essential (primary) hypertension; Z79.82 Long term (current) use of aspirin; Z87.891 Personal history of nicotine dependence
CPT/HCPCS: 36415; 71045; 74176; 80053; 83880; 84484; 85025; 85610; 85730; 93005; 96374; 96376; 99285; J1940; J7070